=== PATIENT | male | born 1990 | race Caucasian/White ===

== ENCOUNTER 2017-02-26 10:41 | Emergency (ER) | payer OTHER, SELFPAY ==
[2017-02-26] MEDS ORDERED: Lactated Ringers 1,000 ML IV ONE (11:28)
[2017-02-26] MEDS ORDERED: Sodium Chloride 0.9% 10 ML Syringe FLUSH PRN (11:28)
[2017-02-26] MEDS ORDERED: Ondansetron 4 MG/2 ML SDV IVPUSH ONE (11:28)
[2017-02-26] MEDS ORDERED: LORazepam 2 MG/ML MDV IVPUSH ONE ×2 (11:54→13:02)
--- NOTE | 2017-02-26 12:01 | EDM.PDOCBH ---
ED HPI GENERAL MEDICAL PROBLEM - General Chief Complaint: Drug or Alcohol Abuse Stated Complaint: Alcohol withdrawal Time Seen by Provider: 02/26/17 11:20 Source of Information: Reports: Patient, RN Notes Reviewed History Limitations: Reports: No Limitations - History of Present Illness INITIAL COMMENTS - FREE TEXT/NARRATIVE: 26 year old male presents to the ED accompanied by his Dad due to concerns of alcohol withdrawal. He has a history of chronic alcohol abuse. He was last seen in the ED in June of 2016 at which time he was admits to [facility] and subsequently went to inpatient treatment at the [facility]. The patient says he has been sober since June. He says he completed treatment and was discharged. He started drinking again 3 days ago. He says he went through a 24 pack in 3 days. He also took "some shots." He denies drug use. He presents today concerned about alcohol withdrawal. He has a history of hallucinations in the past. He says he has difficulty sleeping and eating when he detoxes and feels this contributes to his hallucinations.He was unable to sleep last night. He also has no appetite today. He says that he wants to get a handle on his drinking before it gets worse. His last drink was around 5pm last evening. When asked how he is currently feeling as far as the withdrawal he states he feels "uneasy" and anxious. He denies tremors and hallucinations. He has had some dry heaving today. No fever. Denies pain. The patient feels that he can get a handle on his drinking with some help with the withdrawals. He has two jobs and is motivated to keep his jobs. He says he cannot afford to go back to the [facility] and feels outpatient therapy will be adequate. He has a assistant case manager at [facility] but cannot remember their name. He denies suicidal ideation. - Related Data Allergies Allergy/AdvReac Type Severity Reaction Status Date / Time No Known Allergies Allergy Verified 02/26/17 10:49 Home Meds: Home Meds LORazepam 1 - 2 mg PO Q6H PRN #16 tablet 02/26/17 [Rx] Past Medical History - Past Health History Medical/Surgical History: Denies Medical/Surgical History Psychiatric History: Reports: Anxiety, Hallucinations Social & Family History - Family History Family Medical History: Noncontributory - Tobacco Use Smoking Status *Q: Current Every Day Smoker Years of Tobacco use: 5 Packs/Tins Daily: 1 Second Hand Smoke Exposure: No - Caffeine Use Caffeine Use: Reports: None - Alcohol Use Days Per Week of Alcohol Use: 7 Number of Drinks Per Day: 8 Total Drinks Per Week: 56 - Recreational Drug Use Recreational Drug Use: No Drug Use in Last 12 Months: Yes Recreational Drug Type: Reports: Marijuana/Hashish Recreational Drug Use Frequency: Weekly Recreational Drug Last Use: 10/03/15 - Living Situation & Occupation Living situation: Reports: Single Occupation: Other ED ROS GENERAL - Review of Systems Review Of Systems: See Below Constitutional: Reports: Diaphoresis, Decreased Appetite. Denies: Fever Respiratory: Reports: No Symptoms. Denies: Cough Cardiovascular: Reports: No Symptoms. Denies: Chest Pain GI/Abdominal: Reports: Nausea, Vomiting. Denies: Abdominal Pain Skin: Reports: Other (redness to face ) Neurological: Denies: Confusion, Dizziness, Headache, Numbness, Tingling, Difficulty Walking, Weakness, Gait Disturbance Psychiatric: Reports: Anxiety. Denies: Confusion, Depression, Hallucinations, Mood Lability, Suicidal Ideation ED EXAM, BEHAVIORAL HEALTH - Physical Exam Exam: See Below Exam Limited By: No Limitations General Appearance: Alert, WD/WN, No Apparent Distress, Anxious Respiratory/Chest: No Respiratory Distress, Lungs Clear, Normal Breath Sounds, No Accessory Muscle Use, Chest Non-Tender Cardiovascular: No Edema, Tachycardia (mild) GI/Abdominal: Normal Bowel Sounds, Soft, Non-Tender, No Distention Neurological: Alert, Normal Gait, No Motor/Sensory Deficits, Oriented x 3. No: Ataxia, Tremor Psychiatric: Alert, Oriented, Depressed Mood, Flat Affect, Other (calm, cooperative, appears anxious ). No: Suicidal Plan, Suicidal Thoughts, Auditory Hallucinations, Visual Hallucinations, Threatening Behavior Skin Exam: Warm, Dry, Intact COURSE, BEHAVIORAL HEALTH COMP - Course Vital Signs: Last Vital Signs Temp 97.2 F 02/26/17 10:49 Pulse 109 H 02/26/17 10:49 Resp 23 H 02/26/17 10:49 BP 167/129 H 02/26/17 10:49 Pulse Ox 97 02/26/17 10:49 Orders, Labs, Meds: Active Orders 24 hr Category Date Time Status Peripheral IV Care [RC] . DIRECTED Care 02/26/17 11:29 Active Sodium Chloride 0.9% [Saline Flush] Med 02/26/17 11:28 Active 10 ml FLUSH ASDIRECTED PRN Peripheral IV Insertion Adult [OM.PC] Stat Oth 02/26/17 11:28 Ordered Medication Orders Sodium Chloride (Saline Flush) 10 ml FLUSH ASDIRECTED PRN PRN Reason: Keep Vein Open Last Admin: 02/26/17 11:42 Dose: 10 ml Laboratory Tests 02/26/17 02/26/17 02/26/17 Range/Units 10:55 10:55 12:05 WBC 10.89 H (4.23-9.07) K/mm3 RBC 5.18 (4.63-6.08) M/mm3 Hgb 16.5 (13.7-17.5) gm/L Hct 46.2 (40.1-51.0) % MCV 89.2 (79.0-92.2) fl MCH 31.9 (25.7-32.2) pg MCHC 35.7 H (32.2-35.5) g/dl RDW Std Deviation 41.9 (35.1-43.9) fL Plt Count 382 H (163-337) K/mm3 MPV 9.4 (9.4-12.3) fl Neut % (Auto) 79.0 H (34.0-67.9) % Lymph % (Auto) 9.6 L (21.8-53.1) % [place] % (Auto) 10.7 (5.3-12.2) % Eos % (Auto) 0.1 L (0.8-7.0) Baso % (Auto) 0.5 (0.1-1.2) % Neut # (Auto) 8.61 H (1.78-5.38) K/mm3 Lymph # (Auto) 1.05 L (1.32-3.57) K/mm3 [place] # (Auto) 1.16 H (0.30-0.82) K/mm3 Eos # (Auto) 0.01 L (0.04-0.54) K/mm3 Baso # (Auto) 0.05 (0.01-0.08) K/mm3 Manual Slide Review Normal smear Sodium 137 (136-145) mEq/L Potassium 4.1 (3.5-5.1) mEq/L Chloride 100 (98-107) mEq/L Carbon Dioxide 24 (21-32) mEq/L Anion Gap 17.1 H (5-15) BUN 12 (7-18) mg/dL Creatinine 0.9 (0.7-1.3) mg/dL Est Cr Clr Drug Dosing 112.24 mL/min Estimated GFR (MDRD) > 60 (>60) mL/min BUN/Creatinine Ratio 13.3 L (14-18) Glucose 123 H (74-106) mg/dL Calcium 9.7 (8.5-10.1) mg/dL Total Bilirubin 0.8 (0.2-1.0) mg/dL AST 105 H (15-37) U/L ALT 73 H (16-63) U/L Alkaline Phosphatase 62 (46-116) U/L Total Protein 7.8 (6.4-8.2) g/dl Albumin 3.9 (3.4-5.0) g/dl Globulin 3.9 gm/dL Albumin/Globulin Ratio 1.0 (1-2) Urine Opiates Screen Negative (NEGATIVE) Ur Buprenorphine Scrn Negative (NEGATIVE) Ur Oxycodone Screen Negative (NEGATIVE) Urine Methadone Screen Negative (NEGATIVE) Ur Propoxyphene Screen Negative (NEGATIVE) Ur Barbiturates Screen Negative (NEGATIVE) Ur Tricyclics Screen Negative (NEGATIVE) Ur Phencyclidine Scrn Negative (NEGATIVE) Ur Amphetamine Screen Negative (NEGATIVE) U Methamphetamines Scrn Negative (NEGATIVE) U Benzodiazepines Scrn Negative (NEGATIVE) U Cocaine Metab Screen Negative (NEGATIVE) U Marijuana (THC) Screen Negative (NEGATIVE) Ethyl Alcohol 0.00 (0.00) gm% Medications Generic Name Dose Route Start Last Admin Trade Name Freq PRN Reason Stop Dose Admin Sodium Chloride 10 ml 02/26/17 11:28 02/26/17 11:42 Saline Flush FLUSH 10 ml ASDIRECTED PRN Administration Keep Vein Open Discontinued Medications Generic Name Dose Route Start Last Admin Trade Name Freq PRN Reason Stop Dose Admin Lactated Ringer's 1,000 mls @ 999 mls/hr 02/26/17 11:28 02/26/17 11:38 Ringers, Lactated IV 02/26/17 12:28 999 mls/hr .BOLUS ONE Administration Lorazepam 1 mg 02/26/17 11:54 02/26/17 12:18 Ativan IVPUSH 02/26/17 11:55 1 mg ONETIME ONE Administration Lorazepam 0.5 mg 02/26/17 13:02 02/26/17 13:19 Ativan IVPUSH 02/26/17 13:03 0.5 mg ONETIME ONE Administration Ondansetron HCl 4 mg 02/26/17 11:28 02/26/17 11:38 Zofran IVPUSH 02/26/17 11:29 4 mg ONETIME ONE Administration Re-Assessment/Re-Exam: CBC reveals WBC of 10.89, upper limits of normal. No anemia. CMP reveals Na 137 , K 4.1, Anion gap 17, glucose 123, AST 105, and ALT 73. ETOH is 0 UDS is negative. Patient was treated with 1 liter of NS, Zofran and Ativan. He was feeling mildly better after 1mg of Ativan. He was given an additional 0.5mg. He feels he can remain sober and is willing to follow-up at [facility]. He will be given Ativan 1mg PO Q6H to help with withdrawal symptoms. He understands that he cannot drink while taking Ativan. He also understands that he cannot drive while taking Ativan. He was instructed to return with new or worsening symptoms. Departure - Departure Time of Disposition: 13:31 Disposition: Home, Self-Care 01 Condition: Good Clinical Impression: Alcohol withdrawal syndrome - Discharge Information Prescriptions: LORazepam 1 - 2 mg PO Q6H PRN #16 tablet PRN Reason: Withdrawal Symptoms Referrals: PCP,None [Primary Care Provider] - Additional Instructions: Rest and drink plenty of fluids Ativan 1-2 tabs every 6 hours as needed. Try to take only one tab during the day and two at bedtime to help with sleep. You were given enough for 4 days at which time your withdrawals should be done and you will no longer need the Ativan No driving for at least 8 hours after taking Ativan. Follow-up in the clinic with one of our family practice providers on Monday or Monday. Call [phone] to schedule Return to ER with new or worsening symptoms Follow-up with [facility] tomorrow morning. They have walk-in clinic at 8am or call your assistant case manager from [facility]. - My Orders Last 24 Hours: My Active Orders 02/26/17 11:28 Sodium Chloride 0.9% [Saline Flush] 10 ml FLUSH ASDIRECTED PRN Peripheral IV Insertion Adult [OM.PC] Stat 02/26/17 11:29 Peripheral IV Care [RC] . DIRECTED - Assessment/Plan Last 24 Hours: My Active Orders 02/26/17 11:28 Sodium Chloride 0.9% [Saline Flush] 10 ml FLUSH ASDIRECTED PRN Peripheral IV Insertion Adult [OM.PC] Stat 02/26/17 11:29 Peripheral IV Care [RC] . DIRECTED
[2017-02-26 14:56] VITALS: BP 162/108
== END 2017-02-26 13:55 | disposition home or self-care (01) ==
LOC: JD.ED 10:41
DX: F10.239 Alcohol dependence with withdrawal, unspecified (principal); F17.210 Nicotine dependence, cigarettes, uncomplicated
CPT/HCPCS: 36415; 80053; 80306; 85025; 96361; 96374; 96375; 96376; 99285; G0480; J2060; J2405; J7050; J7120; 99284

== ENCOUNTER 2020-08-18 07:52 | Emergency (ER) | payer SELFPAY ==
[2020-08-18] MEDS ORDERED: Dextrose 5%-0.9% NaCl 1,000 ML IV SCH (08:15)
[2020-08-18] MEDS ORDERED: Metoclopramide 10 MG/2 ML SDV IVPUSH ONE (08:16)
--- NOTE | 2020-08-18 08:18 | EDM.PDOC ---
ED HPI GENERAL MEDICAL PROBLEM - General Chief Complaint: Gastrointestinal Problem Stated Complaint: VOMITING Time Seen by Provider: 08/18/20 08:12 Source of Information: Reports: Patient History Limitations: Reports: No Limitations - History of Present Illness INITIAL COMMENTS - FREE TEXT/NARRATIVE: 30-year-old male presents to the ED stating that he has been ill for the last 3 days with nausea and vomiting. Did have some diarrhea initially mostly yellow and loose. Small volume stool loss. Emesis has been almost all bilious. No hematemesis. Patient is very poor and vague historian. He does not offer much in the way of answering questions. He agrees to some fever and chills. Associated mild headache. No cough. Does not believe he got into any bad food the day prior to the onset of illness. He works detailing cars for living. Is a non-smoker. Denies any alcohol use or street drug use. No previous abdominal surgery. Onset: Sudden Onset Date: 08/15/20 Duration: Day(s):, Constant Location: Reports: Abdomen (10 used to have nausea and vomiting of bilious emesis. Diarrhea is better the last day or 2.) Quality: Reports: Ache (Headache), Other ( generalized myalgia weakness lightheaded and dizzy upon standing) Severity: Moderate Improves with: Reports: None Worsens with: Reports: Other (Trying to eat or drink.) Context: Denies: Activity, Exercise, Lifting, Sick Contact, Trauma, Other Associated Symptoms: Reports: Fever/Chills, Headaches (Low-grade fever.), Loss of Appetite, Malaise, Nausea/Vomiting (Persistent), Weakness ( bilious emesis.). Denies: No Other Symptoms, Confusion, Chest Pain, Cough, cough w sputum, Diaphoresis, Rash, Seizure, Shortness of Breath, Syncope Treatments RUG INSPECTOR HELPER: Reports: Other (see below) (None.) Headache Pain Score (Numeric/FACES): 5 - Related Data Allergies Allergy/AdvReac Type Severity Reaction Status Date / Time No Known Allergies Allergy Verified 08/18/20 08:02 Home Meds: Home Meds Ondansetron [Zofran] 4 mg BUCCAL Q6H PRN #8 tab 08/18/20 [Rx] Past Medical History - Past Health History Medical/Surgical History: Denies Medical/Surgical History Psychiatric History: Reports: Anxiety, Hallucinations Social & Family History - Family History Family Medical History: No Pertinent Family History - Tobacco Use Tobacco Use Status *Q: Never Tobacco User Second Hand Smoke Exposure: No - Caffeine Use Caffeine Use: Reports: Energy Drinks - Recreational Drug Use Recreational Drug Use: No - Living Situation & Occupation Living situation: Reports: Single Occupation: Other ED ROS GENERAL - Review of Systems Review Of Systems: See Below Constitutional: Reports: Fever, Malaise, Weakness, Fatigue, Decreased Appetite, Weight Loss HEENT: Reports: No Symptoms Respiratory: Reports: Shortness of Breath. Denies: Wheezing, Pleuritic Chest Pain Cardiovascular: Reports: No Symptoms Endocrine: Reports: Fatigue GI/Abdominal: Reports: Diarrhea, Nausea (Diarrhea with initial onset of illness now improved.), Vomiting ( Nausea persists vomiting persists bilious emesis this morning.) : Reports: Other (Urine is dark in color but not burning.) Musculoskeletal: Reports: No Symptoms Skin: Reports: No Symptoms Neurological: Reports: Dizziness, Headache Psychiatric: Reports: No Symptoms Hematologic/Lymphatic: Reports: No Symptoms Immunologic: Reports: No Symptoms ED EXAM, GI/ABD - Physical Exam Exam: See Below Exam Limited By: No Limitations General Appearance: Alert, WD/WN, No Apparent Distress, Other (Hard to get any answers out of the patient. He is quite vague and somewhat withdrawn. Temperature is 36.1 heart rate 121 and sinus at the bedside. Respiratory 16 with a BP 165/87 and O2 sats of 98% on room air.) Eyes: Bilateral: Normal Appearance (No scleral icterus or blepharal pallor.) Throat/Mouth: Normal Inspection, Normal Lips, Normal Oropharynx, Other Neck: Normal Inspection, Supple, Non-Tender, Full Range of Motion. No: Lymphadenopathy (L), Lymphadenopathy (R) Respiratory/Chest: No Respiratory Distress, Lungs Clear, Normal Breath Sounds, No Accessory Muscle Use Cardiovascular: Regular Rate, Rhythm, No Edema, No Gallop (Tachycardia at rest.), No Murmur, No Rub, Tachycardia GI/Abdominal Exam: Normal Bowel Sounds, Soft, No Organomegaly, No Mass, Pelvis Stable, Tender (Minimally tender in the epigastrium.). No: Guarding, Rigid, Rebound (Male) Exam: No Hernia Back Exam: Normal Inspection, Full Range of Motion. No: CVA Tenderness (L), CVA Tenderness (R) Extremities: Normal Inspection, Normal Range of Motion, Non-Tender, No Pedal Edema Neurological: Alert, Oriented, CN II-XII Intact, Normal Cognition, Normal Gait, Normal Reflexes Psychiatric: Normal Affect, Normal Mood Skin Exam: Warm, Dry, Intact, Normal Color, No Rash Course - Vital Signs Last Recorded V/S: Last Vital Signs Temp 36.1 C 08/18/20 07:59 Pulse 121 H 08/18/20 07:59 Resp 16 08/18/20 07:59 BP 165/87 H 08/18/20 07:59 Pulse Ox 98 08/18/20 07:59 - Orders/Labs/Meds Orders: Active Orders 24 hr Category Date Time Status LACTATE SEPSIS W/ REFLEX [CHEM] Routine Lab 08/18/20 11:25 Received Dextrose 5%-0.9% NaCl [Dextrose 5%-Normal Saline] 1,000 Med 08/18/20 08:15 Active ml IV ASDIRECTED Ketorolac [Toradol] Med 08/18/20 08:30 Active 30 mg IVPUSH ONETIME Lactated Ringers [Ringers, Lactated] 1,000 ml Med 08/18/20 09:45 Active IV ASDIRECTED Ondansetron [Zofran] Med 08/18/20 11:52 Once 4 mg IVPUSH ONETIME ONE Medication Orders Dextrose/Sodium Chloride (Dextrose 5%-Normal Saline) 1,000 mls @ 999 mls/hr IV ASDIRECTED ONUR Last Admin: 08/18/20 08:27 Dose: 999 mls/hr Documented by: ABHINAV Lactated Ringer's (Ringers, Lactated) 1,000 mls @ 999 mls/hr IV ASDIRECTED ONUR Last Admin: 08/18/20 10:00 Dose: 999 mls/hr Documented by: ABHINAV Ketorolac Tromethamine (Ketorolac 30 Mg/Ml Sdv) 30 mg IVPUSH ONETIME ONUR Last Admin: 08/18/20 08:28 Dose: 30 mg Documented by: ABHINAV Labs: Laboratory Tests 08/18/20 08/18/20 08/18/20 Range/Units 08:25 08:25 08:25 WBC (4.23-9.07) K/mm3 RBC (4.63-6.08) M/mm3 Hgb (13.7-17.5) gm/dl Hct (40.1-51.0) % MCV (79.0-92.2) fl MCH (25.7-32.2) pg MCHC (32.2-35.5) g/dl RDW Std Deviation (35.1-43.9) fL Plt Count (163-337) K/mm3 MPV (9.4-12.3) fl Neut % (Auto) (34.0-67.9) % Lymph % (Auto) (21.8-53.1) % [place] % (Auto) (5.3-12.2) % Eos % (Auto) (0.8-7.0) Baso % (Auto) (0.1-1.2) % Neut # (Auto) (1.78-5.38) K/mm3 Lymph # (Auto) (1.32-3.57) K/mm3 [place] # (Auto) (0.30-0.82) K/mm3 Eos # (Auto) (0.04-0.54) K/mm3 Baso # (Auto) (0.01-0.08) K/mm3 Manual Slide Review Sodium 134 L (136-145) mEq/L Potassium 3.7 (3.5-5.1) mEq/L Chloride 93 L (98-107) mEq/L Carbon Dioxide 29 (21-32) mEq/L Anion Gap 15.7 H (5-15) BUN 12 (7-18) mg/dL Creatinine 1.1 (0.7-1.3) mg/dL Est Cr Clr Drug Dosing 101.39 mL/min Estimated GFR (MDRD) > 60 (>60) mL/min BUN/Creatinine Ratio 10.9 L (14-18) Glucose 137 H (74-106) mg/dL Lactic Acid 4.0 H* (0.4-2.0) mmol/L Calcium 8.6 (8.5-10.1) mg/dL Magnesium 1.9 (1.8-2.4) mg/dl Total Bilirubin 0.5 (0.2-1.0) mg/dL AST 43 H (15-37) U/L ALT 48 (16-63) U/L Alkaline Phosphatase 62 (46-116) U/L C-Reactive Protein (<1.0) mg/dL Total Protein 7.6 (6.4-8.2) g/dl Albumin 4.0 (3.4-5.0) g/dl Globulin 3.6 gm/dL Albumin/Globulin Ratio 1.1 (1-2) Lipase 70 L (73-393) U/L Ketones <0.01 (0.0-0.3) mM 08/18/20 08/18/20 Range/Units 08:25 08:25 WBC 10.07 H (4.23-9.07) K/mm3 RBC 5.09 (4.63-6.08) M/mm3 Hgb 15.8 (13.7-17.5) gm/dl Hct 46.0 (40.1-51.0) % MCV 90.4 (79.0-92.2) fl MCH 31.0 (25.7-32.2) pg MCHC 34.3 (32.2-35.5) g/dl RDW Std Deviation 42.5 (35.1-43.9) fL Plt Count 343 H (163-337) K/mm3 MPV 9.0 L (9.4-12.3) fl Neut % (Auto) 70.0 H (34.0-67.9) % Lymph % (Auto) 21.9 (21.8-53.1) % [place] % (Auto) 7.3 (5.3-12.2) % Eos % (Auto) 0.3 L (0.8-7.0) Baso % (Auto) 0.3 (0.1-1.2) % Neut # (Auto) 7.04 H (1.78-5.38) K/mm3 Lymph # (Auto) 2.21 (1.32-3.57) K/mm3 [place] # (Auto) 0.74 (0.30-0.82) K/mm3 Eos # (Auto) 0.03 L (0.04-0.54) K/mm3 Baso # (Auto) 0.03 (0.01-0.08) K/mm3 Manual Slide Review Abnormal smear Sodium (136-145) mEq/L Potassium (3.5-5.1) mEq/L Chloride (98-107) mEq/L Carbon Dioxide (21-32) mEq/L Anion Gap (5-15) BUN (7-18) mg/dL Creatinine (0.7-1.3) mg/dL Est Cr Clr Drug Dosing mL/min Estimated GFR (MDRD) (>60) mL/min BUN/Creatinine Ratio (14-18) Glucose (74-106) mg/dL Lactic Acid (0.4-2.0) mmol/L Calcium (8.5-10.1) mg/dL Magnesium (1.8-2.4) mg/dl Total Bilirubin (0.2-1.0) mg/dL AST (15-37) U/L ALT (16-63) U/L Alkaline Phosphatase (46-116) U/L C-Reactive Protein <0.2 (<1.0) mg/dL Total Protein (6.4-8.2) g/dl Albumin (3.4-5.0) g/dl Globulin gm/dL Albumin/Globulin Ratio (1-2) Lipase (73-393) U/L Ketones (0.0-0.3) mM Meds: Medications Generic Name Dose Route Start Last Admin Trade Name Freq PRN Reason Stop Dose Admin Dextrose/Sodium Chloride 1,000 mls @ 999 mls/hr 08/18/20 08:15 08/18/20 08:27 Dextrose 5%-Normal Saline IV 999 mls/hr ASDIRECTED ONUR Administration Lactated Ringer's 1,000 mls @ 999 mls/hr 08/18/20 09:45 08/18/20 10:00 Ringers, Lactated IV 999 mls/hr ASDIRECTED ONUR Administration Ketorolac Tromethamine 30 mg 08/18/20 08:30 08/18/20 08:28 Ketorolac 30 Mg/Ml Sdv IVPUSH 30 mg ONETIME ONUR Administration Discontinued Medications Generic Name Dose Route Start Last Admin Trade Name Freq PRN Reason Stop Dose Admin Metoclopramide HCl 7.5 mg 08/18/20 08:16 08/18/20 08:28 Metoclopramide 10 Mg/2 Ml Sdv IVPUSH 08/18/20 08:17 7.5 mg ONETIME ONE Administration Ondansetron HCl 4 mg 08/18/20 09:45 08/18/20 10:00 Ondansetron 4 Mg/2 Ml Sdv IVPUSH 08/18/20 09:46 4 mg ONETIME ONE Administration - Radiology Interpretation Free Text/Narrative:: 30-year-old male presents to the ED with a history of gastroenteritis with particularly persistent nausea and vomiting over the last 3 days. Minimal diarrhea to start with but better now. Has a headache generalized myalgia and weakness. No cough. No fever on exam. He has not taken any medication is nothing will stay down. He does not believe he got into any bad food. Plan IV D5 Ringer's lactate at open. Reglan 7.5 mg IV for nausea relief Toradol 30 mg IV for headache relief. Routine labs to be done including serum ketones and lactic acid. - Re-Assessments/Exams Free Text/Narrative Re-Assessment/Exam: 08/18/20 09:09 Sodium is 134 with a potassium of 3.7. Chloride 93 with a bicarb of 29. Anion gap is 15.7. BUN is 12 with a creatinine of 1.1 and a GFR greater than 60. Glucose is 137. Calcium is 8.6 magnesium is 1.9. Bilirubin is 0.5 AST slightly elevated at 43. ALT normal at 48 alk phosphatase of 62. Total protein 7.6 with an albumin fraction of 4.0 lipase is 70 08/18/20 09:15 Lactic acid is returned at 4.0. This is not necessarily reflected in his anion gap. It would be repeated in 2 to 3 hours.White count is 10.07 with a 70% neutrophils on the differential. Hematocrit of 46.0 platelet count 343,000 slightly elevated. 08/18/20 09:46 Due to his elevated lactic acid of 4.0 he will require a second liter of IV fluids. Plan will be to infuse Ringer's lactate 1 L at open. Still has mild nausea. Will give Zofran 4 mg IV. Serum ketones came back at less than 0.01. 08/18/20 11:52 she has pretty well completed his second liter of IV fluids which should correct his metabolic acidosis. He remains mildly nauseated. Will repeat Zofran 4 mg IV before discharge home. He will be discharged home on Zofran 4 mg sublingually every 4 to 6 hours as necessary for nausea relief. He is to try maintain fluid intake by way of Gatorade Powerade. Clear fluid diet. Departure - Departure Time of Disposition: 11:53 Disposition: Home, Self-Care 01 Condition: Fair Clinical Impression: Acute gastroenteritis - Discharge Information *PRESCRIPTION DRUG MONITORING PROGRAM REVIEWED*: Not Applicable *COPY OF PRESCRIPTION DRUG MONITORING REPORT IN PATIENT JACQUELINE: Not Applicable Prescriptions: Ondansetron [Zofran] 4 mg BUCCAL Q6H PRN #8 tab PRN Reason: nausea or vomiting Instructions: Viral Gastroenteritis, Adult, [id number] Referrals: PCP,None [Primary Care Provider] - Forms: ED Department Discharge Additional Instructions: Evaluation in the emergency room today in regards to 3-day history of nausea and vomiting with inability to keep down much in the way of fluids or solids. Mild diarrhea at initial onset of illness. No associated fever or chills. Lab test essentially were all within normal limits other than an elevated lactic acid ind icating that you were dehydrated. You thus were treated with 2 L of IV fluids to rehydrate you. You were treated with initial dose of Reglan 7.5 mg and 2 doses of Zofran 4 mg IV each for nausea relief. Headache was treated with Toradol 30 mg IV which is similar to Motrin. May use Tylenol 650 mg every 4 hours for headache relief or Motrin 600 mg every 6 hours for headache relief. May use Zofran under the tongue every 4-6 hours necessary for nausea relief. Next dose would be due around 4 PM today. Suggest clear fluids such as Gatorade/Powerade 4 to 5 ounces per hour to maintain hydration. If hungry try soda crackers first if they stay down may advance to jam on white bread. If this stays down then may advance to soup such as turkey rice/chicken noodle tonight for supper. Avoid all dairy products and no apple juice or grape juice until no further diarrhea has occurred. Return to the emergency room or medical care if you continue to vomit greater than the next 24 hours. Sepsis Event Note (ED) - Evaluation Sepsis Screening Result: No Definite Risk - Focused Exam Vital Signs: Vital Signs Temp Pulse Resp BP Pulse Ox 08/18/20 07:59 36.1 C 121 H 16 165/87 H 98 - My Orders Last 24 Hours: My Active Orders 08/18/20 08:15 Dextrose 5%-0.9% NaCl [Dextrose 5%-Normal Saline] 1,000 ml IV ASDIRECTED 08/18/20 08:30 Ketorolac [Toradol] 30 mg IVPUSH ONETIME 08/18/20 09:45 Lactated Ringers [Ringers, Lactated] 1,000 ml IV ASDIRECTED 08/18/20 11:25 LACTATE SEPSIS W/ REFLEX [CHEM] Routine 08/18/20 11:52 Ondansetron [Zofran] 4 mg IVPUSH ONETIME ONE - Assessment/Plan Last 24 Hours: My Active Orders 08/18/20 08:15 Dextrose 5%-0.9% NaCl [Dextrose 5%-Normal Saline] 1,000 ml IV ASDIRECTED 08/18/20 08:30 Ketorolac [Toradol] 30 mg IVPUSH ONETIME 08/18/20 09:45 Lactated Ringers [Ringers, Lactated] 1,000 ml IV ASDIRECTED 08/18/20 11:25 LACTATE SEPSIS W/ REFLEX [CHEM] Routine 08/18/20 11:52 Ondansetron [Zofran] 4 mg IVPUSH ONETIME ONE
[2020-08-18] MEDS ORDERED: Ketorolac 30 MG/ML SDV IVPUSH SCH (08:30)
[2020-08-18] MEDS ORDERED: Ondansetron 4 MG/2 ML SDV IVPUSH ONE ×2 (09:45→11:52)
[2020-08-18] MEDS ORDERED: Lactated Ringers 1,000 ML IV SCH (09:45)
[2020-08-18 12:03] VITALS: BP 145/73; PULSE 108
== END 2020-08-18 12:10 | disposition home or self-care (01) ==
LOC: JD.ED 07:52
DX: K52.9 Noninfective gastroenteritis and colitis, unspecified (principal); R74.02 Elevation of levels of lactic acid dehydrogenase [LDH]
CPT/HCPCS: 36415; 80053; 82009; 83605; 83690; 83735; 85025; 86140; 96374; 96375; 96376; 99284; J1885; J2405; J2765; J7042; J7120; 99283

== ENCOUNTER 2021-08-27 17:23 | Emergency (ER) | payer SELFPAY ==
[2021-08-27 18:28] VITALS: BP 144/77; PULSE 88
[2021-08-27] MEDS ORDERED: Folic Acid 1 MG Tab PO ONE (18:44)
[2021-08-27] MEDS ORDERED: LORazepam 2 MG/ML SDV IVPUSH ONE (18:44)
[2021-08-27] MEDS ORDERED: Sodium Chloride 0.9% 10 ML Syringe FLUSH PRN (18:44)
[2021-08-27] MEDS ORDERED: Metoclopramide 10 MG/2 ML SDV IVPUSH ONE (18:44)
[2021-08-27] MEDS ORDERED: Thiamine 100 MG Tab PO ONE (18:44)
[2021-08-27] MEDS ORDERED: Sodium Chloride 0.9% 1,000 ML IV ONE ×2 (18:44→19:52)
== END 2021-08-27 22:58 | disposition home or self-care (01) ==
LOC: JD.ED 17:23
DX: F10.129 Alcohol abuse with intoxication, unspecified (principal); Y90.1 Blood alcohol level of 20-39 mg/100 ml
CPT/HCPCS: 36415; 80053; 80306; 80307; 83735; 85025; 85610; 96374; 96375; 99284; A9270; J2060; J2765; J3490; J7030

== ENCOUNTER 2021-08-31 17:15 | Emergency (ER) | payer SELFPAY ==
[2021-08-31 17:25] VITALS: BP 156/106; PULSE 109
[2021-08-31] MEDS ORDERED: Lactated Ringers 1,000 ML IV ONE (17:33)
[2021-08-31] MEDS ORDERED: Sodium Chloride 0.9% 10 ML Syringe FLUSH PRN (17:33)
[2021-08-31 18:30] LABS: ACETAMINOPHEN 0 ug/mL (10-30)
== END 2021-08-31 19:48 | disposition home or self-care (01) ==
LOC: JD.ED 17:15
DX: F10.129 Alcohol abuse with intoxication, unspecified (principal); Y90.6 Blood alcohol level of 120-199 mg/100 ml
CPT/HCPCS: 36415; 80053; 80143; 80179; 80306; 80307; 81003; 83735; 84443; 85025; 99284; J3490; J7120

== ENCOUNTER 2022-10-20 13:40 | Emergency (ER) | payer SELFPAY ==
[2022-10-20 13:54] VITALS: BP 130/77; PULSE 80
== END 2022-10-20 14:40 | disposition home or self-care (01) ==
LOC: JD.ED 13:40
DX: Z48.02 Encounter for removal of sutures (principal)
CPT/HCPCS: 99281

== ENCOUNTER 2022-11-01 20:19 | Emergency (ER) | payer SELFPAY ==
[2022-11-01 21:07] LABS: HEMATOCRIT 50.6 % (40.1-51.0); HEMOGLOBIN 17.5 gm/dl (13.7-17.5); MEAN CORPUSCULAR HEMOGLOBIN 31.6 pg (25.7-32.2); MEAN CORPUSCULAR HGB CONC 34.6 g/dl (32.2-35.5); MEAN CORPUSCULAR VOLUME 91.5 fl (79.0-92.2); MEAN PLATELET VOLUME 8.5 fl (9.4-12.3); PLATELET COUNT,PLT 358 K/mm3 (163-337); RED BLOOD CELL COUNT 5.53 M/mm3 (4.63-6.08); WHITE BLOOD CELL COUNT,WBC 5.23 K/mm3 (4.23-9.07)
[2022-11-01] MEDS ORDERED: Ondansetron 4 MG/2 ML SDV IVPUSH ONE (21:21)
[2022-11-01] MEDS ORDERED: Sodium Chloride 0.9% 1,000 ML IV STA (21:21)
[2022-11-01 21:37] LABS: ALBUMIN 3.9 g/dl (3.4-5.0); ANION GAP 14.6 (5-15); BILIRUBIN TOTAL 0.6 mg/dL (0.2-1.0); BUN/CREATININE RATIO 7.8 (14-18); CREATININE 0.9 mg/dL (0.7-1.3); EST CRCL DRUG DOSING (CG) 106.33 mL/min; ETHANOL BLOOD MEDICAL 0.45 gm% (0.00); POTASSIUM,K 3.6 mEq/L (3.5-5.1); TSH 2.227 uIU/mL (0.358-3.74)
[2022-11-01 21:46] LABS: BAND PERCENT MAN 0 % (0-10); BASOPHILS PERCENT MAN 2 (0.2-1.2); EOSINOPHILS PERCENT MAN 0 % (0.8-7.0); LYMPHOCYTES % ATYPICAL MANUAL 0 %; LYMPHOCYTES PERCENT MAN 30 % (20-40); MONOCYTES PERCENT MAN 9 % (2-10); PLATELET COUNT ESTIMATE ADEQUATE
[2022-11-02 00:44] VITALS: BP 135/106; PULSE 108
== END 2022-11-01 23:50 | disposition home or self-care (01) ==
LOC: JD.ED 20:19
DX: F10.929 Alcohol use, unspecified with intoxication, unspecified (principal); Y90.2 Blood alcohol level of 40-59 mg/100 ml
CPT/HCPCS: 36415; 80053; 80143; 80179; 80307; 84443; 85007; 85027; 93005; 96361; 96374; 99284; J2405; J7030; 93010

== ENCOUNTER 2022-11-02 18:05 | Emergency (ER) | payer SELFPAY ==
[2022-11-02] MEDS ORDERED: Sodium Chloride 0.9% 1,000 ML IV ONE ×3 (18:24→22:45)
[2022-11-02] MEDS ORDERED: Metoclopramide 10 MG/2 ML SDV IVPUSH ONE (18:35)
[2022-11-02] MEDS: Sodium Chloride 0.9% 10 ML Syringe FLUSH PRN ×2 (19:01→20:03)
[2022-11-02 19:11] LABS: BASOPHILS ABSOLUTE AUTO 0.04 K/mm3 (0.01-0.08); BASOPHILS PERCENT AUTO 0.6 % (0.1-1.2); EOSINOPHILS ABSOLUTE AUTO 0.02 K/mm3 (0.04-0.54); EOSINOPHILS PERCENT AUTO 0.3 (0.8-7.0); HEMATOCRIT 47.5 % (40.1-51.0); HEMOGLOBIN 16.2 gm/dl (13.7-17.5); IMMATURE GRAN ABSOLUTE AUTO 0.01 K/mm3 (0.00-0.10); IMMATURE GRAN PERCENT AUTO 0.2 % (<=1.0); LYMPHOCYTES ABSOLUTE AUTO 1.37 K/mm3 (1.32-3.57); MEAN CORPUSCULAR HEMOGLOBIN 31.7 pg (25.7-32.2); MEAN CORPUSCULAR HGB CONC 34.1 g/dl (32.2-35.5); MEAN PLATELET VOLUME 8.7 fl (9.4-12.3); MONOCYTES ABSOLUTE AUTO 0.64 K/mm3 (0.30-0.82); MONOCYTES PERCENT AUTO 10.3 % (5.3-12.2); NEUTROPHILS ABSOLUTE AUTO 4.14 K/mm3 (1.78-5.38); NEUTROPHILS PERCENT AUTO 66.6 % (34.0-67.9); PLATELET COUNT,PLT 305 K/mm3 (163-337); RED BLOOD CELL COUNT 5.11 M/mm3 (4.63-6.08); WHITE BLOOD CELL COUNT,WBC 6.22 K/mm3 (4.23-9.07)
[2022-11-02 19:20] LABS: BARBITURATE SCREEN,URINE NEGATIVE (CUTOFF=200); BENZODIAZEPINES SCREEN,URINE NEGATIVE (CUTOFF=150); BUPRENORPHINE SCREEN,URINE NEGATIVE (CUTOFF=10); METHADONE SCREEN, URINE NEGATIVE (CUT0FF=200); METHAMPHETAMINES SCREEN, URINE NEGATIVE (CUTOFF=500); OXYCODONE SCREEN,URINE NEGATIVE (CUT0FF=100); PROPOXYPHENE SCREEN,URINE NEGATIVE (CUTOFF=300); THC SCREEN,URINE 20 NG/ML PRESUMPTIVE POSITIVE (CUTOFF=50)
[2022-11-02 19:22] LABS: AMPHETAMINES SCREEN, URINE NEGATIVE (CUTOFF=500)
[2022-11-02 19:30] LABS: INR 1.03
[2022-11-02 19:33] LABS: ALBUMIN 3.8 g/dl (3.4-5.0); ANION GAP 11.6 (5-15); BILIRUBIN TOTAL 0.5 mg/dL (0.2-1.0); BUN/CREATININE RATIO 15.6 (14-18); CALCIUM 8.7 mg/dL (8.5-10.1); CREATININE 0.9 mg/dL (0.7-1.3); ETHANOL BLOOD MEDICAL 0.36 gm% (0.00); POTASSIUM,K 3.6 mEq/L (3.5-5.1); PROTEIN TOTAL,TP 7.7 g/dl (6.4-8.2)
[2022-11-02] MEDS ORDERED: LORazepam 2 MG/ML SDV IVPUSH ONE (19:50)
[2022-11-03] MEDS ORDERED: LORazepam 2 MG/ML SDV IVPUSH ONE (05:21)
[2022-11-03 10:13] VITALS: BP 149/95; PULSE 101
== END 2022-11-03 10:13 | disposition other institution (70) ==
LOC: JD.ED 18:05
DX: F10.10 Alcohol abuse, uncomplicated (principal); F17.210 Nicotine dependence, cigarettes, uncomplicated; Y90.0 Blood alcohol level of less than 20 mg/100 ml
CPT/HCPCS: 36415; 80053; 80306; 80307; 83735; 85025; 85610; 96361; 96374; 96375; 96376; 99285; J2060; J2765; J3490; J7030; 99284

== ENCOUNTER 2022-12-14 17:07 | Emergency (ER) | payer SELFPAY ==
[2022-12-14 17:48] VITALS: BP 151/94; PULSE 109
== END 2022-12-14 18:41 | disposition left against medical advice (07) ==
LOC: JD.ED 17:07
DX: Z53.21 Procedure and treatment not carried out due to patient leaving prior to being seen by health care provider (principal)

== ENCOUNTER 2022-12-15 08:31 | Emergency (ER) | payer SELFPAY ==
[2022-12-15 09:15] LABS: BASOPHILS ABSOLUTE AUTO 0.03 K/mm3 (0.01-0.08); BASOPHILS PERCENT AUTO 0.3 % (0.1-1.2); EOSINOPHILS ABSOLUTE AUTO 0.02 K/mm3 (0.04-0.54); EOSINOPHILS PERCENT AUTO 0.2 (0.8-7.0); HEMATOCRIT 47.2 % (40.1-51.0); HEMOGLOBIN 16.3 gm/dl (13.7-17.5); IMMATURE GRAN ABSOLUTE AUTO 0.03 K/mm3 (0.00-0.10); IMMATURE GRAN PERCENT AUTO 0.3 % (<=1.0); LYMPHOCYTES ABSOLUTE AUTO 1.55 K/mm3 (1.32-3.57); LYMPHOCYTES PERCENT AUTO 13.4 % (21.8-53.1); MEAN CORPUSCULAR HGB CONC 34.5 g/dl (32.2-35.5); MEAN CORPUSCULAR VOLUME 92.7 fl (79.0-92.2); MEAN PLATELET VOLUME 9.7 fl (9.4-12.3); MONOCYTES ABSOLUTE AUTO 1.44 K/mm3 (0.30-0.82); MONOCYTES PERCENT AUTO 12.4 % (5.3-12.2); NEUTROPHILS ABSOLUTE AUTO 8.53 K/mm3 (1.78-5.38); NEUTROPHILS PERCENT AUTO 73.4 % (34.0-67.9); PLATELET COUNT,PLT 168 K/mm3 (163-337); RED BLOOD CELL COUNT 5.09 M/mm3 (4.63-6.08)
[2022-12-15 09:31] LABS: BARBITURATE SCREEN,URINE NEGATIVE (CUTOFF=200); BENZODIAZEPINES SCREEN,URINE NEGATIVE (CUTOFF=150); BUPRENORPHINE SCREEN,URINE NEGATIVE (CUTOFF=10); METHADONE SCREEN, URINE NEGATIVE (CUT0FF=200); METHAMPHETAMINES SCREEN, URINE NEGATIVE (CUTOFF=500); OXYCODONE SCREEN,URINE NEGATIVE (CUT0FF=100); PROPOXYPHENE SCREEN,URINE NEGATIVE (CUTOFF=300); THC SCREEN,URINE 20 NG/ML PRESUMPTIVE POSITIVE (CUTOFF=50)
[2022-12-15 09:46] LABS: A/G RATIO 1.1 (1-2); ALBUMIN 4.4 g/dl (3.4-5.0); ANION GAP 16.2 (5-15); BILIRUBIN TOTAL 1.4 mg/dL (0.2-1.0); BUN/CREATININE RATIO 30.9 (14-18); CREATININE 1.1 mg/dL (0.7-1.3); EST CRCL DRUG DOSING (CG) 92.24 mL/min; POTASSIUM,K 4.2 mEq/L (3.5-5.1); PROTEIN TOTAL,TP 8.6 g/dl (6.4-8.2); TSH 2.937 uIU/mL (0.358-3.74)
[2022-12-15 09:56] LABS: AMPHETAMINES SCREEN, URINE NEGATIVE (CUTOFF=500)
[2022-12-15] MEDS ORDERED: QUEtiapine 25 MG Tab PO ONE (10:12)
[2022-12-15 12:48] VITALS: BP 119/79; PULSE 84
== END 2022-12-15 12:30 | disposition home or self-care (01) ==
LOC: JD.ED 08:31
DX: R44.3 Hallucinations, unspecified (principal); Z79.899 Other long term (current) drug therapy
CPT/HCPCS: 36415; 80053; 80143; 80179; 80306; 80307; 84443; 85025; 99285; A9270; 99283

== ENCOUNTER 2023-01-18 23:41 | Emergency (ER) | payer SELFPAY ==
[2023-01-19] MEDS ORDERED: Sodium Chloride 0.9% 500 ML IV ONE (00:02)
[2023-01-19] MEDS ORDERED: Ondansetron 4 MG/2 ML SDV IVPUSH ONE (00:03)
[2023-01-19 00:16] LABS: BASOPHILS ABSOLUTE AUTO 0.1 K/mm3 (0.0-0.2); BASOPHILS PERCENT AUTO 0.9 % (0.0-1.0); EOSINOPHILS PERCENT AUTO 0.1 % (0.0-6.0); HEMOGLOBIN 17.6 gm/dl (14.0-18.0); IMMATURE GRAN ABSOLUTE AUTO 0.02 K/mm3 (0.00-0.05); IMMATURE GRAN PERCENT AUTO 0.2 % (0.0-0.4); LYMPHOCYTES ABSOLUTE AUTO 2.9 K/mm3 (1.0-4.8); LYMPHOCYTES PERCENT AUTO 31.9 % (24.0-44.0); MEAN CORPUSCULAR HEMOGLOBIN 31.7 pg (28.0-32.0); MEAN CORPUSCULAR HGB CONC 35.2 g/dl (32.0-36.0); MEAN CORPUSCULAR VOLUME 89.9 fl (83.0-99.0); MEAN PLATELET VOLUME 8.8 fl (9.4-12.4); MONOCYTES ABSOLUTE AUTO 0.5 K/mm3 (0.0-0.8); MONOCYTES PERCENT AUTO 5.9 % (0.0-8.0); NEUTROPHILS ABSOLUTE AUTO 5.4 K/mm3 (1.8-7.7); PLATELET COUNT,PLT 247 K/mm3 (150-400); RED BLOOD CELL COUNT 5.56 M/mm3 (4.52-5.90); WHITE BLOOD CELL COUNT,WBC 8.93 K/mm3 (3.9-11.3)
[2023-01-19 00:41] LABS: A/G RATIO 1.1 (1-2); ALBUMIN 3.8 g/dl (3.4-5.0); ANION GAP 17.7 (5-15); BILIRUBIN TOTAL 0.6 mg/dL (0.2-1.0); BUN/CREATININE RATIO 17.8 (14-18); CALCIUM 8.5 mg/dL (8.5-10.1); CREATININE 0.9 mg/dL (0.7-1.3); EST CRCL DRUG DOSING (CG) 106.33 mL/min; ETHANOL BLOOD MEDICAL 0.41 gm% (0.00); POTASSIUM,K 3.7 mEq/L (3.5-5.1); PROTEIN TOTAL,TP 7.4 g/dl (6.4-8.2)
[2023-01-19 01:41] LABS: BARBITURATE SCREEN,URINE NEGATIVE (CUTOFF=200); BENZODIAZEPINES SCREEN,URINE NEGATIVE (CUTOFF=150); BUPRENORPHINE SCREEN,URINE NEGATIVE (CUTOFF=10); METHADONE SCREEN, URINE NEGATIVE (CUT0FF=200); METHAMPHETAMINES SCREEN, URINE NEGATIVE (CUTOFF=500); OXYCODONE SCREEN,URINE NEGATIVE (CUT0FF=100); PROPOXYPHENE SCREEN,URINE NEGATIVE (CUTOFF=300); THC SCREEN,URINE 20 NG/ML PRESUMPTIVE POSITIVE (CUTOFF=50)
[2023-01-19 01:43] LABS: AMPHETAMINES SCREEN, URINE NEGATIVE (CUTOFF=500)
[2023-01-19 02:08] VITALS: BP 147/99; PULSE 105
== END 2023-01-19 02:00 | disposition left against medical advice (07) ==
LOC: JD.ED 23:41
DX: F10.10 Alcohol abuse, uncomplicated (principal); F17.210 Nicotine dependence, cigarettes, uncomplicated; Y90.0 Blood alcohol level of less than 20 mg/100 ml; Z79.899 Other long term (current) drug therapy
CPT/HCPCS: 36415; 80053; 80306; 80307; 85025; 96361; 96374; 99284; J2405; J7030

== ENCOUNTER 2023-01-25 12:31 | Emergency (ER) | payer SELFPAY ==
[2023-01-25] MEDS ORDERED: Lactated Ringers 1,000 ML IV ONE ×2 (13:44→16:57)
[2023-01-25 13:56] LABS: APPEARANCE,URINE CLEAR (Clear); BILIRUBIN,URINE NEGATIVE (Negative); COLOR,URINE YELLOW (Yellow); GLUCOSE,URINE NEGATIVE (Negative); KETONES,URINE NEGATIVE (Negative); LEUKOCYTE ESTERASE,URINE NEGATIVE (Negative); NITRITE,URINE NEGATIVE (Negative); OCCULT BLOOD,URINE TRACE-INTACT (Negative); PH,URINE 6.5 (5.0-8.0); PROTEIN,URINE 2+ (Negative); UROBILINOGEN,URINE 0.2 (0.2-1.0)
[2023-01-25 14:02] LABS: BARBITURATE SCREEN,URINE NEGATIVE (CUTOFF=200); BENZODIAZEPINES SCREEN,URINE NEGATIVE (CUTOFF=150); BUPRENORPHINE SCREEN,URINE NEGATIVE (CUTOFF=10); METHADONE SCREEN, URINE NEGATIVE (CUT0FF=200); METHAMPHETAMINES SCREEN, URINE NEGATIVE (CUTOFF=500); OXYCODONE SCREEN,URINE NEGATIVE (CUT0FF=100); PROPOXYPHENE SCREEN,URINE NEGATIVE (CUTOFF=300); THC SCREEN,URINE 20 NG/ML PRESUMPTIVE POSITIVE (CUTOFF=50)
[2023-01-25 14:03] LABS: BACTERIA,URINE FEW /hpf (FEW); EPITHELIAL CELLS,URINE 0-5 /hpf (0-5); MUCUS,URINE MODERATE /hpf (FEW); RBC,URINE 0-5 /hpf (0-5); WBC,URINE 0-5 /hpf (0-5)
[2023-01-25 14:05] LABS: AMPHETAMINES SCREEN, URINE NEGATIVE (CUTOFF=500)
[2023-01-25 14:09] LABS: BASOPHILS ABSOLUTE AUTO 0.1 K/mm3 (0.0-0.2); BASOPHILS PERCENT AUTO 0.5 % (0.0-1.0); EOSINOPHILS PERCENT AUTO 0.1 % (0.0-6.0); HEMATOCRIT 52.6 % (42.0-52.0); HEMOGLOBIN 18.8 gm/dl (14.0-18.0); IMMATURE GRAN ABSOLUTE AUTO 0.03 K/mm3 (0.00-0.05); IMMATURE GRAN PERCENT AUTO 0.3 % (0.0-0.4); LYMPHOCYTES ABSOLUTE AUTO 2.3 K/mm3 (1.0-4.8); LYMPHOCYTES PERCENT AUTO 21.1 % (24.0-44.0); MEAN CORPUSCULAR HEMOGLOBIN 31.4 pg (28.0-32.0); MEAN CORPUSCULAR HGB CONC 35.7 g/dl (32.0-36.0); MEAN PLATELET VOLUME 8.8 fl (9.4-12.4); MONOCYTES ABSOLUTE AUTO 0.8 K/mm3 (0.0-0.8); NEUTROPHILS ABSOLUTE AUTO 7.9 K/mm3 (1.8-7.7); PLATELET COUNT,PLT 151 K/mm3 (150-400); RED BLOOD CELL COUNT 5.98 M/mm3 (4.52-5.90); WHITE BLOOD CELL COUNT,WBC 11.07 K/mm3 (3.9-11.3)
[2023-01-25 14:41] LABS: ALBUMIN 3.7 g/dl (3.4-5.0); ANION GAP 13.5 (5-15); BILIRUBIN TOTAL 0.8 mg/dL (0.2-1.0); BUN/CREATININE RATIO 21.1 (14-18); CALCIUM 8.4 mg/dL (8.5-10.1); CREATININE 0.9 mg/dL (0.7-1.3); EST CRCL DRUG DOSING (CG) 106.33 mL/min; ETHANOL BLOOD MEDICAL 0.47 gm% (0.00); POTASSIUM,K 3.5 mEq/L (3.5-5.1); PROTEIN TOTAL,TP 7.5 g/dl (6.4-8.2)
[2023-01-25] MEDS ORDERED: LORazepam 2 MG/ML SDV IVPUSH ONE (15:56)
[2023-01-25] MEDS ORDERED: Ondansetron 4 MG/2 ML SDV IVPUSH ONE (16:59)
[2023-01-26] MEDS ORDERED: LORazepam 2 MG/ML SDV IVPUSH ONE (00:26)
[2023-01-26] MEDS ORDERED: LORazepam 1 MG Tab PO ONE ×3 (07:55→14:00)
[2023-01-26 13:50] VITALS: BP 147/87; PULSE 101
[2023-01-26] MEDS ORDERED: Ondansetron 4 MG Tab.DIS PO ONE (15:05)
== END 2023-01-26 16:09 | disposition other institution (70) ==
LOC: JD.ED 12:31
DX: F10.239 Alcohol dependence with withdrawal, unspecified (principal); Y90.0 Blood alcohol level of less than 20 mg/100 ml
CPT/HCPCS: 36415; 80053; 80143; 80179; 80306; 80307; 81001; 83735; 84443; 85025; A9270; J2060; J2405; J7120; 96361; 96374; 96375; 96376; 99284; 99284-25

== ENCOUNTER 2023-02-22 04:01 | Emergency (ER) | payer SELFPAY ==
[2023-02-22] MEDS ORDERED: Sodium Chloride 0.9% 10 ML Syringe FLUSH PRN (04:10)
[2023-02-22] MEDS ORDERED: Sodium Chloride 0.9% 1,000 ML IV ONE ×2 (04:10→04:50)
[2023-02-22 04:25] LABS: BASOPHILS ABSOLUTE AUTO 0.1 K/mm3 (0.0-0.2); BASOPHILS PERCENT AUTO 0.5 % (0.0-1.0); HEMATOCRIT 52.9 % (42.0-52.0); HEMOGLOBIN 18.6 gm/dl (14.0-18.0); IMMATURE GRAN ABSOLUTE AUTO 0.01 K/mm3 (0.00-0.05); IMMATURE GRAN PERCENT AUTO 0.1 % (0.0-0.4); LYMPHOCYTES ABSOLUTE AUTO 3.2 K/mm3 (1.0-4.8); LYMPHOCYTES PERCENT AUTO 32.8 % (24.0-44.0); MEAN CORPUSCULAR HEMOGLOBIN 31.6 pg (28.0-32.0); MEAN CORPUSCULAR HGB CONC 35.2 g/dl (32.0-36.0); MEAN CORPUSCULAR VOLUME 89.8 fl (83.0-99.0); MEAN PLATELET VOLUME 8.8 fl (9.4-12.4); MONOCYTES ABSOLUTE AUTO 0.5 K/mm3 (0.0-0.8); MONOCYTES PERCENT AUTO 4.7 % (0.0-8.0); NEUTROPHILS PERCENT AUTO 61.9 % (41.0-71.0); PLATELET COUNT,PLT 208 K/mm3 (150-400); RED BLOOD CELL COUNT 5.89 M/mm3 (4.52-5.90); WHITE BLOOD CELL COUNT,WBC 9.66 K/mm3 (3.9-11.3)
[2023-02-22 04:56] LABS: ALBUMIN 3.9 g/dl (3.4-5.0); ANION GAP 18.5 (5-15); BILIRUBIN TOTAL 0.6 mg/dL (0.2-1.0); CALCIUM 8.5 mg/dL (8.5-10.1); EST CRCL DRUG DOSING (CG) 95.7 mL/min; ETHANOL BLOOD MEDICAL 0.43 gm% (0.00); POTASSIUM,K 3.5 mEq/L (3.5-5.1); PROTEIN TOTAL,TP 7.9 g/dl (6.4-8.2)
[2023-02-22 04:57] LABS: BARBITURATE SCREEN,URINE NEGATIVE (CUTOFF=200); BENZODIAZEPINES SCREEN,URINE NEGATIVE (CUTOFF=150); BUPRENORPHINE SCREEN,URINE NEGATIVE (CUTOFF=10); METHADONE SCREEN, URINE NEGATIVE (CUT0FF=200); METHAMPHETAMINES SCREEN, URINE NEGATIVE (CUTOFF=500); OXYCODONE SCREEN,URINE NEGATIVE (CUT0FF=100); THC SCREEN,URINE 20 NG/ML PRESUMPTIVE POSITIVE (CUTOFF=50)
[2023-02-22 05:00] LABS: AMPHETAMINES SCREEN, URINE NEGATIVE (CUTOFF=500)
[2023-02-22] MEDS ORDERED: hydrOXYzine HCl 25 MG Tab PO ONE (15:23)
[2023-02-22] MEDS ORDERED: hydrOXYzine HCl 50 MG Tab PO ONE (15:30)
[2023-02-22] MEDS ORDERED: LORazepam 1 MG Tab PO ONE ×2 (19:42→22:45)
[2023-02-22] MEDS ORDERED: Take Home: Ondansetron 4 MG Tab.DIS, 2 Tab Pack PO ONE (19:55)
[2023-02-22 22:54] VITALS: BP 139/89; PULSE 95
== END 2023-02-22 22:42 ==
LOC: JD.ED 04:01
DX: S01.81XA Laceration without foreign body of other part of head, initial encounter (principal); F10.239 Alcohol dependence with withdrawal, unspecified; F19.10 Other psychoactive substance abuse, uncomplicated; Z79.899 Other long term (current) drug therapy; W19.XXXA Unspecified fall, initial encounter
CPT/HCPCS: 12011; 36415; 70450; 70486; 72125; 80053; 80306; 80307; 85025; 96360; 96361; 99285; A9270; J3490; J7030; 99283

== ENCOUNTER 2023-02-23 10:14 | Emergency (ER) | payer SELFPAY ==
[2023-02-23 13:14] VITALS: BP 158/96; PULSE 112
== END 2023-02-23 13:10 | disposition other institution (70) ==
LOC: JD.ED 10:14
DX: R44.1 Visual hallucinations (principal); F10.20 Alcohol dependence, uncomplicated; F17.210 Nicotine dependence, cigarettes, uncomplicated
CPT/HCPCS: 99283; 99284

== ENCOUNTER 2023-02-24 02:36 | Inpatient (IN) | payer SELFPAY ==
[2023-02-24] MEDS ORDERED: LORazepam 2 MG/ML SDV IVPUSH ONE ×3 (03:20→12:32)
[2023-02-24] MEDS ORDERED: Haloperidol Lactate 5 MG/ML SDV IVPUSH ONE (03:20)
[2023-02-24] MEDS: Dextrose 5%-0.9% NaCl 1,000 ML IV SCH ×2 (03:36→22:12)
[2023-02-24] MEDS ORDERED: diphenhydrAMINE 50 MG/ML SDV IVPUSH ONE (03:38)
[2023-02-24 03:55] LABS: BASOPHILS PERCENT AUTO 0.4 % (0.0-1.0); EOSINOPHILS PERCENT AUTO 0.3 % (0.0-6.0); HEMATOCRIT 39.5 % (42.0-52.0); HEMOGLOBIN 14.2 gm/dl (14.0-18.0); IMMATURE GRAN ABSOLUTE AUTO 0.03 K/mm3 (0.00-0.05); IMMATURE GRAN PERCENT AUTO 0.4 % (0.0-0.4); LYMPHOCYTES ABSOLUTE AUTO 1.1 K/mm3 (1.0-4.8); LYMPHOCYTES PERCENT AUTO 15.3 % (24.0-44.0); MEAN CORPUSCULAR HEMOGLOBIN 32.1 pg (28.0-32.0); MEAN CORPUSCULAR HGB CONC 35.9 g/dl (32.0-36.0); MEAN CORPUSCULAR VOLUME 89.4 fl (83.0-99.0); MEAN PLATELET VOLUME 10.3 fl (9.4-12.4); MONOCYTES ABSOLUTE AUTO 0.8 K/mm3 (0.0-0.8); MONOCYTES PERCENT AUTO 11.7 % (0.0-8.0); NEUTROPHILS PERCENT AUTO 71.9 % (41.0-71.0); PLATELET COUNT,PLT 87 K/mm3 (150-400); RED BLOOD CELL COUNT 4.42 M/mm3 (4.52-5.90); WHITE BLOOD CELL COUNT,WBC 7.01 K/mm3 (3.9-11.3)
[2023-02-24 04:17] LABS: ALBUMIN 3.6 g/dl (3.4-5.0); ANION GAP 16.2 (5-15); BUN/CREATININE RATIO 10.8 (14-18); CALCIUM 9.4 mg/dL (8.5-10.1); CREATININE 1.3 mg/dL (0.7-1.3); EST CRCL DRUG DOSING (CG) 73.62 mL/min; MAGNESIUM 1.6 mg/dL (1.8-2.4); POTASSIUM,K 3.2 mEq/L (3.5-5.1); PROTEIN TOTAL,TP 7.3 g/dl (6.4-8.2)
[2023-02-24] MEDS ORDERED: Magnesium Sulfate/Water 2 GM in Premix Bag 1 BAG IV ONE (04:24)
[2023-02-24] MEDS ORDERED: QUEtiapine 25 MG Tab PO ONE (08:10)
[2023-02-24] MEDS ORDERED: Ondansetron 4 MG/2 ML SDV IV PRN (12:22)
[2023-02-24] MEDS ORDERED: Ondansetron 4 MG Tab.DIS PO PRN (12:22)
[2023-02-24] MEDS ORDERED: Acetaminophen 325 MG Tab PO PRN (12:22)
[2023-02-24] MEDS ORDERED: cloNIDine 0.1 MG Tab PO PRN (12:25)
[2023-02-24] MEDS ORDERED: Metoprolol Tartrate 25 MG Tab PO PRN (12:25)
[2023-02-24] MEDS ORDERED: LORazepam 1 MG Tab PO SCH (12:30)
[2023-02-24] MEDS ORDERED: Thiamine 100 MG in Sodium Chloride 0.9% 50 ML IV SCH (12:30)
[2023-02-24] MEDS: Heparin Sodium 5,000 Units/ML Vial SUBCUT SCH ×2 (12:50→20:26)
[2023-02-24] MEDS: PHENobarbital Sodium 65 MG/ML SDV IVPUSH PRN ×3 (15:28→19:05)
[2023-02-24] MEDS: Thiamine 200 MG/2 ML MDV IVPUSH SCH (16:31)
[2023-02-24] MEDS: LORazepam 2 MG/ML SDV IV SCH ×3 (16:31→18:34)
[2023-02-24] MEDS: Folic Acid 1 MG Tab PO SCH (16:31)
[2023-02-25] MEDS: Dextrose 5%-0.9% NaCl 1,000 ML IV SCH (02:04)
[2023-02-25] MEDS ORDERED: Lactated Ringers 1,000 ML IV ONE ×2 (03:12→04:37)
[2023-02-25] MEDS ORDERED: Lactated Ringers 1,000 ML ONE (03:16)
[2023-02-25] MEDS: Heparin Sodium 5,000 Units/ML Vial SUBCUT SCH ×2 (04:01→12:14)
[2023-02-25] MEDS: Lactated Ringers 1,000 ML IV SCH ×2 (04:07→12:15)
[2023-02-25 05:39] LABS: BASOPHILS PERCENT AUTO 0.6 % (0.0-1.0); EOSINOPHILS ABSOLUTE AUTO 0.2 K/mm3 (0.0-0.4); EOSINOPHILS PERCENT AUTO 3.2 % (0.0-6.0); IMMATURE GRAN ABSOLUTE AUTO 0.04 K/mm3 (0.00-0.05); IMMATURE GRAN PERCENT AUTO 0.6 % (0.0-0.4); LYMPHOCYTES ABSOLUTE AUTO 2.4 K/mm3 (1.0-4.8); LYMPHOCYTES PERCENT AUTO 33.3 % (24.0-44.0); MEAN CORPUSCULAR HEMOGLOBIN 32.6 pg (28.0-32.0); MEAN CORPUSCULAR HGB CONC 34.7 g/dl (32.0-36.0); MEAN CORPUSCULAR VOLUME 93.9 fl (83.0-99.0); MEAN PLATELET VOLUME 10.6 fl (9.4-12.4); MONOCYTES ABSOLUTE AUTO 0.9 K/mm3 (0.0-0.8); MONOCYTES PERCENT AUTO 12.8 % (0.0-8.0); NEUTROPHILS ABSOLUTE AUTO 3.6 K/mm3 (1.8-7.7); NEUTROPHILS PERCENT AUTO 49.5 % (41.0-71.0); PLATELET COUNT,PLT 71 K/mm3 (150-400); RED BLOOD CELL COUNT 3.62 M/mm3 (4.52-5.90); WHITE BLOOD CELL COUNT,WBC 7.26 K/mm3 (3.9-11.3)
[2023-02-25] MEDS ORDERED: Phenylephrine 1% 10 MG/ML SDV ONE (05:41)
[2023-02-25 05:42] LABS: HEMOGLOBIN 11.8 gm/dl (14.0-18.0)
[2023-02-25] MEDS ORDERED: Sodium Chloride 0.9% 100 ML ONE (05:42)
[2023-02-25] MEDS ORDERED: Phenylephrine 10 MG in Sodium Chloride 0.9% 99 ML IV SCH (05:45)
[2023-02-25 05:54] LABS: A/G RATIO 0.9 (1-2); ALBUMIN 2.6 g/dl (3.4-5.0); ANION GAP 13.7 (5-15); BILIRUBIN TOTAL 0.7 mg/dL (0.2-1.0); CALCIUM 8.4 mg/dL (8.5-10.1); EST CRCL DRUG DOSING (CG) 95.7 mL/min; POTASSIUM,K 3.7 mEq/L (3.5-5.1); PROTEIN TOTAL,TP 5.4 g/dl (6.4-8.2)
[2023-02-25] MEDS: Folic Acid 1 MG Tab PO SCH (09:11)
[2023-02-25] MEDS: Thiamine 200 MG/2 ML MDV IVPUSH SCH (09:11)
[2023-02-25 15:33] VITALS: BP 141/98; PULSE 110
== END 2023-02-25 14:45 | disposition left against medical advice (07) | DRG 894 ==
LOC: JD.ED 02:36 → JD.ICU 12:22
PROVIDERS: ADMIT Hospitalist; ATTEND Hospitalist
PROC: 3E033XZ Introduction of Vasopressor into Peripheral Vein, Percutaneous Approach (ICD-10-PCS; principal; 2023-02-25)
DX: F10.231 Alcohol dependence with withdrawal delirium (principal); F10.232 Alcohol dependence with withdrawal with perceptual disturbance; F41.9 Anxiety disorder, unspecified; I10 Essential (primary) hypertension; F17.210 Nicotine dependence, cigarettes, uncomplicated; F12.90 Cannabis use, unspecified, uncomplicated; I95.2 Hypotension due to drugs; T42.3X5A Adverse effect of barbiturates, initial encounter; T42.6X5A Adverse effect of other antiepileptic and sedative-hypnotic drugs, initial encounter; Z79.899 Other long term (current) drug therapy
CPT/HCPCS: 36415; 80053; 80307; 82009; 82977; 83605; 83735; 85025; 93005; 93010; 99285; A9270-GY; J1200; J1630; J1644; J2060; J2371; J2560; J3411; J3475; J3490; J7042; J7120

== ENCOUNTER 2023-08-04 13:38 | Emergency (ER) | payer SELFPAY ==
[2023-08-04 13:48] VITALS: BP 167/110; PULSE 114
[2023-08-04 14:08] LABS: BASOPHILS ABSOLUTE AUTO 0.1 K/mm3 (0.0-0.2); BASOPHILS PERCENT AUTO 0.5 % (0.0-1.0); EOSINOPHILS PERCENT AUTO 0.1 % (0.0-6.0); HEMATOCRIT 53.9 % (42.0-52.0); IMMATURE GRAN ABSOLUTE AUTO 0.03 K/mm3 (0.00-0.05); IMMATURE GRAN PERCENT AUTO 0.3 % (0.0-0.4); LYMPHOCYTES ABSOLUTE AUTO 2.2 K/mm3 (1.0-4.8); MEAN CORPUSCULAR HEMOGLOBIN 30.9 pg (28.0-32.0); MEAN CORPUSCULAR HGB CONC 35.4 g/dl (32.0-36.0); MEAN PLATELET VOLUME 8.8 fl (9.4-12.4); MONOCYTES ABSOLUTE AUTO 0.7 K/mm3 (0.0-0.8); MONOCYTES PERCENT AUTO 7.3 % (0.0-8.0); NEUTROPHILS ABSOLUTE AUTO 7.1 K/mm3 (1.8-7.7); NEUTROPHILS PERCENT AUTO 69.8 % (41.0-71.0); RED BLOOD CELL COUNT 6.18 M/mm3 (4.52-5.90)
[2023-08-04 14:10] LABS: HEMOGLOBIN 19.1 gm/dl (14.0-18.0); MEAN CORPUSCULAR VOLUME 87.2 fl (83.0-99.0)
[2023-08-04 14:11] LABS: PLATELET COUNT,PLT 278 K/mm3 (150-400)
[2023-08-04] MEDS: Folic Acid 1 MG Tab PO ONE (14:21)
[2023-08-04] MEDS: Sodium Chloride 0.9% 10 ML Syringe FLUSH PRN (14:21)
[2023-08-04] MEDS: Thiamine 100 MG Tab PO ONE (14:21)
[2023-08-04] MEDS: Sodium Chloride 0.9% 1,000 ML IV SCH ×2 (14:21→15:26)
[2023-08-04 14:36] LABS: ALBUMIN 3.6 g/dl (3.4-5.0); ANION GAP 16.5 (5-15); BILIRUBIN TOTAL 0.8 mg/dL (0.2-1.0); BUN/CREATININE RATIO 13.3 (14-18); CALCIUM 7.5 mg/dL (8.5-10.1); CREATININE 0.9 mg/dL (0.7-1.3); EST CRCL DRUG DOSING (CG) 112.94 mL/min; ETHANOL BLOOD MEDICAL 0.51 gm% (0.00); POTASSIUM,K 3.5 mEq/L (3.5-5.1); PROTEIN TOTAL,TP 7.2 g/dl (6.4-8.2); TSH 2.605 uIU/mL (0.358-3.74)
[2023-08-04] MEDS: Ondansetron 4 MG/2 ML SDV IVPUSH ONE (16:36)
== END 2023-08-04 17:58 | disposition left against medical advice (07) ==
LOC: JD.ED 13:38
DX: F10.120 Alcohol abuse with intoxication, uncomplicated (principal); Y90.0 Blood alcohol level of less than 20 mg/100 ml; Z53.29 Procedure and treatment not carried out because of patient's decision for other reasons; Z79.899 Other long term (current) drug therapy
CPT/HCPCS: 36415; 80053; 80143; 80179; 80307; 83690; 84443; 85025; 93005; 96361; 96374; 99284; A9270; J2405; J3490; J7030

== ENCOUNTER 2023-08-06 06:13 | Emergency (ER) | payer SELFPAY ==
[2023-08-06] MEDS: Sodium Chloride 0.9% 1,000 ML IV ONE (06:45)
[2023-08-06] MEDS: Pantoprazole 40 MG Vial IVPUSH ONE (06:45)
[2023-08-06 07:00] LABS: BASOPHILS ABSOLUTE AUTO 0.1 K/mm3 (0.0-0.2); BASOPHILS PERCENT AUTO 0.3 % (0.0-1.0); EOSINOPHILS PERCENT AUTO 0.1 % (0.0-6.0); HEMATOCRIT 50.5 % (42.0-52.0); HEMOGLOBIN 18.1 gm/dl (14.0-18.0); IMMATURE GRAN ABSOLUTE AUTO 0.06 K/mm3 (0.00-0.05); IMMATURE GRAN PERCENT AUTO 0.4 % (0.0-0.4); LYMPHOCYTES PERCENT AUTO 13.6 % (24.0-44.0); MEAN CORPUSCULAR HEMOGLOBIN 31.1 pg (28.0-32.0); MEAN CORPUSCULAR HGB CONC 35.8 g/dl (32.0-36.0); MEAN CORPUSCULAR VOLUME 86.8 fl (83.0-99.0); MEAN PLATELET VOLUME 8.8 fl (9.4-12.4); MONOCYTES ABSOLUTE AUTO 1.5 K/mm3 (0.0-0.8); MONOCYTES PERCENT AUTO 10.2 % (0.0-8.0); NEUTROPHILS ABSOLUTE AUTO 11.2 K/mm3 (1.8-7.7); NEUTROPHILS PERCENT AUTO 75.4 % (41.0-71.0); RED BLOOD CELL COUNT 5.82 M/mm3 (4.52-5.90); WHITE BLOOD CELL COUNT,WBC 14.83 K/mm3 (3.9-11.3)
[2023-08-06 07:01] VITALS: BP 156/104; PULSE 113
[2023-08-06 07:06] LABS: INR 1.02; PROTHROMBIN TIME 10.9 SECONDS (9.7-12.0)
[2023-08-06 07:08] LABS: PTT,PARTIAL THROMBOPLSTIN TIME 30.9 SECONDS (21.7-31.4)
[2023-08-06 07:09] LABS: A/G RATIO 0.9 (1-2); ALANINE AMINOTRANSFERASE,ALT 214 U/L (16-63); ALBUMIN 3.4 g/dl (3.4-5.0); ALKALINE PHOSPHATASE 90 U/L (46-116); ANION GAP 16.5 (5-15); ASPARTATE AMNIOTRANSFERASE,AST 182 U/L (15-37); BILIRUBIN TOTAL 0.8 mg/dL (0.2-1.0); BLOOD UREA NITROGEN,BUN 10 mg/dL (7-18); BUN/CREATININE RATIO 12.5 (14-18); CALCIUM 7.6 mg/dL (8.5-10.1); CARBON DIOXIDE,CO2 27 mEq/L (21-32); CHLORIDE,CL 101 mEq/L (98-107); CREATININE 0.8 mg/dL (0.7-1.3); ESTIMATED GFR 120 mL/min (>60); ETHANOL BLOOD MEDICAL 0.52 gm% (0.00); GLUCOSE RANDOM 117 mg/dL (70-99); LIPASE 181 U/L (16-77); PROTEIN TOTAL,TP 7.1 g/dl (6.4-8.2); SODIUM,NA 141 mEq/L (136-145)
[2023-08-06 07:13] LABS: PLATELET COUNT,PLT 155 K/mm3 (150-400)
[2023-08-06 07:18] LABS: POTASSIUM,K 3.5 mEq/L (3.5-5.1)
[2023-08-06 07:20] LABS: SLIDE REVIEW ABNORMAL SMEAR
== END 2023-08-06 07:50 | disposition left against medical advice (07) ==
LOC: JD.ED 06:13
DX: F10.220 Alcohol dependence with intoxication, uncomplicated (principal); Z79.899 Other long term (current) drug therapy; Y90.9 Presence of alcohol in blood, level not specified
CPT/HCPCS: 36415; 80053; 80307; 83690; 83735; 85025; 85610; 85730; 96361; 96374; 99284; C9113; J7030

== ENCOUNTER 2023-08-06 08:14 | Inpatient (IN) | payer SELFPAY ==
[2023-08-06] MEDS: Sodium Chloride 0.9% 10 ML Syringe FLUSH PRN (11:37)
[2023-08-06 12:09] LABS: APPEARANCE,URINE CLEAR (Clear); BILIRUBIN,URINE NEGATIVE (Negative); COLOR,URINE YELLOW (Yellow); GLUCOSE,URINE NEGATIVE (Negative); KETONES,URINE NEGATIVE (Negative); LEUKOCYTE ESTERASE,URINE NEGATIVE (Negative); NITRITE,URINE NEGATIVE (Negative); OCCULT BLOOD,URINE TRACE-LYSED (Negative); PROTEIN,URINE 1+ (Negative)
[2023-08-06 12:16] LABS: BACTERIA,URINE FEW /hpf (FEW); EPITHELIAL CELLS,URINE 0-5 /hpf (0-5); MUCUS,URINE FEW /hpf (FEW); RBC,URINE 0-5 /hpf (0-5); WBC,URINE 0-5 /hpf (0-5)
[2023-08-06 12:18] LABS: BARBITURATE SCREEN,URINE NEGATIVE (CUTOFF=200); BENZODIAZEPINES SCREEN,URINE NEGATIVE (CUTOFF=150); BUPRENORPHINE SCREEN,URINE NEGATIVE (CUTOFF=10); METHADONE SCREEN, URINE NEGATIVE (CUT0FF=200); METHAMPHETAMINES SCREEN, URINE NEGATIVE (CUTOFF=500); OXYCODONE SCREEN,URINE NEGATIVE (CUT0FF=100); THC SCREEN,URINE 20 NG/ML PRESUMPTIVE POSITIVE (CUTOFF=50)
[2023-08-06 12:19] LABS: AMPHETAMINES SCREEN, URINE NEGATIVE (CUTOFF=500)
[2023-08-06] MEDS: Prochlorperazine 10 MG/2 ML SDV IVPUSH ONE (12:32)
[2023-08-06] MEDS: Ondansetron 4 MG/2 ML SDV IVPUSH ONE (14:15)
[2023-08-06] MEDS: LORazepam 2 MG/ML SDV IVPUSH ONE (14:15)
[2023-08-06] MEDS ORDERED: PHENobarbital Sodium 65 MG/ML SDV IVPUSH ONE (15:25)
[2023-08-06 15:45] LABS: BASOPHILS PERCENT AUTO 0.3 % (0.0-1.0); EOSINOPHILS PERCENT AUTO 0.1 % (0.0-6.0); HEMATOCRIT 43.4 % (42.0-52.0); IMMATURE GRAN ABSOLUTE AUTO 0.02 K/mm3 (0.00-0.05); IMMATURE GRAN PERCENT AUTO 0.2 % (0.0-0.4); LYMPHOCYTES ABSOLUTE AUTO 1.1 K/mm3 (1.0-4.8); LYMPHOCYTES PERCENT AUTO 11.8 % (24.0-44.0); MEAN CORPUSCULAR HEMOGLOBIN 30.8 pg (28.0-32.0); MEAN CORPUSCULAR VOLUME 87.9 fl (83.0-99.0); MEAN PLATELET VOLUME 9.4 fl (9.4-12.4); MONOCYTES ABSOLUTE AUTO 0.8 K/mm3 (0.0-0.8); MONOCYTES PERCENT AUTO 8.3 % (0.0-8.0); NEUTROPHILS ABSOLUTE AUTO 7.5 K/mm3 (1.8-7.7); NEUTROPHILS PERCENT AUTO 79.3 % (41.0-71.0); PLATELET COUNT,PLT 123 K/mm3 (150-400); RED BLOOD CELL COUNT 4.94 M/mm3 (4.52-5.90); WHITE BLOOD CELL COUNT,WBC 9.48 K/mm3 (3.9-11.3)
[2023-08-06 16:00] LABS: HEMOGLOBIN 15.2 gm/dl (14.0-18.0)
[2023-08-06 16:05] LABS: INR 1.08; PROTHROMBIN TIME 11.5 SECONDS (9.7-12.0)
[2023-08-06 16:09] LABS: ALBUMIN 3.1 g/dl (3.4-5.0); ANION GAP 16.3 (5-15); BILIRUBIN TOTAL 0.9 mg/dL (0.2-1.0); C-REACTIVE PROTEIN 2.21 mg/dL (<0.30); CALCIUM 7.5 mg/dL (8.5-10.1); CREATININE 0.8 mg/dL (0.7-1.3); EST CRCL DRUG DOSING (CG) 122.79 mL/min; POTASSIUM,K 3.3 mEq/L (3.5-5.1); PROTEIN TOTAL,TP 6.3 g/dl (6.4-8.2)
[2023-08-06] MEDS: PHENobarbital Sodium 65 MG/ML SDV IVPUSH ONE (16:39)
[2023-08-06] MEDS ORDERED: Folic Acid 50 MG/10 ML MDV IV SCH (17:00)
[2023-08-06] MEDS ORDERED: Thiamine 100 MG in Sodium Chloride 0.9% 100 ML IV SCH (17:00)
[2023-08-06] MEDS: D5 1/2 NS w/ 20 mEq/L KCl 1,000 ML IV SCH (17:47)
[2023-08-06] MEDS: cefTRIAXone 1 GM in Sodium Chloride 0.9% 100 ML IV SCH (17:47)
[2023-08-06] MEDS: Thiamine 200 MG/2 ML MDV IVPUSH SCH (18:38)
[2023-08-06] MEDS: Folic Acid 50 MG/10 ML MDV IV SCH (18:39)
[2023-08-06] MEDS: PHENobarbital Sodium 65 MG/ML SDV IVPUSH SCH (22:24)
[2023-08-06] MEDS ORDERED: PHENobarbitaL sodium 130 MG in Sodium Chloride 0.9% 100 ML IV SCH (22:30)
[2023-08-07] MEDS: LORazepam 2 MG/ML SDV IVPUSH PRN (00:12)
[2023-08-07] MEDS: Pantoprazole 40 MG Vial IVPUSH SCH (08:25)
[2023-08-07] MEDS: PHENobarbital Sodium 65 MG/ML SDV ONE (23:58)
[2023-08-08] MEDS: PHENobarbital Sodium 65 MG/ML SDV IVPUSH ONE (00:06)
[2023-08-08] MEDS: PHENobarbital Sodium 65 MG/ML SDV IVPUSH SCH (06:01)
[2023-08-08 06:28] LABS: A/G RATIO 0.7 (1-2); ALBUMIN 2.9 g/dl (3.4-5.0); ANION GAP 15.5 (5-15); BILIRUBIN TOTAL 1.3 mg/dL (0.2-1.0); BUN/CREATININE RATIO 8.6 (14-18); CALCIUM 8.8 mg/dL (8.5-10.1); CREATININE 0.7 mg/dL (0.7-1.3); EST CRCL DRUG DOSING (CG) 145.21 mL/min; MAGNESIUM 1.9 mg/dL (1.8-2.4); POTASSIUM,K 3.5 mEq/L (3.5-5.1); PROTEIN TOTAL,TP 6.8 g/dl (6.4-8.2)
[2023-08-08 06:32] LABS: HEMATOCRIT 45.1 % (42.0-52.0); HEMOGLOBIN 15.8 gm/dl (14.0-18.0); MEAN CORPUSCULAR HEMOGLOBIN 30.7 pg (28.0-32.0); MEAN CORPUSCULAR VOLUME 87.6 fl (83.0-99.0); MEAN PLATELET VOLUME 9.8 fl (9.4-12.4); PLATELET COUNT,PLT 87 K/mm3 (150-400); RED BLOOD CELL COUNT 5.15 M/mm3 (4.52-5.90)
[2023-08-08] MEDS: Potassium Chloride 20 MEQ Tab.ER PO SCH (10:31)
[2023-08-08] MEDS: Ondansetron 4 MG/2 ML SDV IVPUSH PRN (13:20)
[2023-08-08] MEDS: PHENobarbital Sodium 65 MG/ML SDV IVPUSH STA (22:30)
[2023-08-09] MEDS: PHENobarbital Sodium 65 MG/ML SDV IVPUSH SCH (05:52)
[2023-08-09] MEDS: Thiamine 200 MG/2 ML MDV IVPUSH SCH (12:59)
[2023-08-09] MEDS: LORazepam 2 MG/ML SDV IVPUSH PRN (21:19)
[2023-08-10 00:01] VITALS: BP 129/101; PULSE 116
== END 2023-08-10 01:45 | disposition left against medical advice (07) | DRG 894 ==
LOC: JD.ED 08:14 → JD.ICU 14:33
PROVIDERS: ADMIT Pediatrics; ATTEND Internal Medicine
DX: F10.231 Alcohol dependence with withdrawal delirium (principal); F10.232 Alcohol dependence with withdrawal with perceptual disturbance; H54.7 Unspecified visual loss; K52.9 Noninfective gastroenteritis and colitis, unspecified; F19.10 Other psychoactive substance abuse, uncomplicated; R74.01 Elevation of levels of liver transaminase levels; Z79.899 Other long term (current) drug therapy
CPT/HCPCS: 36415; 70450; 70450-26; 70490; 70490-26; 80053; 80184; 80306; 80307; 81001; 82150; 83735; 85025; 85027; 85610; 85730; 86140; 96374; 96375; 99284; 99284-25; A9270-GY; C9113; J0696; J0780; J2060; J2405; J2560; J3411; J3480; J3490

== ENCOUNTER 2023-10-02 15:53 | Emergency (ER) | payer SELFPAY ==
[2023-10-02 16:22] LABS: BASOPHILS ABSOLUTE AUTO 0.1 K/mm3 (0.0-0.2); BASOPHILS PERCENT AUTO 0.4 % (0.0-1.0); HEMATOCRIT 54.5 % (42.0-52.0); HEMOGLOBIN 19.3 gm/dl (14.0-18.0); IMMATURE GRAN ABSOLUTE AUTO 0.04 K/mm3 (0.00-0.05); IMMATURE GRAN PERCENT AUTO 0.3 % (0.0-0.4); LYMPHOCYTES ABSOLUTE AUTO 2.5 K/mm3 (1.0-4.8); LYMPHOCYTES PERCENT AUTO 20.9 % (24.0-44.0); MEAN CORPUSCULAR HEMOGLOBIN 29.8 pg (28.0-32.0); MEAN CORPUSCULAR HGB CONC 35.4 g/dl (32.0-36.0); MEAN CORPUSCULAR VOLUME 84.2 fl (83.0-99.0); MEAN PLATELET VOLUME 8.9 fl (9.4-12.4); MONOCYTES PERCENT AUTO 8.4 % (0.0-8.0); NEUTROPHILS ABSOLUTE AUTO 8.4 K/mm3 (1.8-7.7); PLATELET COUNT,PLT 220 K/mm3 (150-400); RED BLOOD CELL COUNT 6.47 M/mm3 (4.52-5.90); WHITE BLOOD CELL COUNT,WBC 11.94 K/mm3 (3.9-11.3)
[2023-10-02] MEDS: Ondansetron 4 MG/2 ML SDV IVPUSH ONE (16:23)
[2023-10-02] MEDS: Lactated Ringers 1,000 ML IV ONE (16:23)
[2023-10-02] MEDS: OLANZapine 10 MG Vial IM ONE (16:27)
[2023-10-02] MEDS: LORazepam 2 MG/ML SDV IVPUSH ONE (16:30)
[2023-10-02 16:34] LABS: A/G RATIO 0.8 (1-2); ALBUMIN 3.4 g/dl (3.4-5.0); ANION GAP 17.5 (5-15); BILIRUBIN TOTAL 0.6 mg/dL (0.2-1.0); BUN/CREATININE RATIO 11.1 (14-18); CALCIUM 8.3 mg/dL (8.5-10.1); CREATININE 0.9 mg/dL (0.7-1.3); EST CRCL DRUG DOSING (CG) 120.54 mL/min; ETHANOL BLOOD MEDICAL 0.5 gm% (0.00); POTASSIUM,K 3.5 mEq/L (3.5-5.1); PROTEIN TOTAL,TP 7.6 g/dl (6.4-8.2)
[2023-10-02] MEDS: LORazepam 2 MG/ML SDV ONE (16:47)
[2023-10-02 17:48] LABS: AMPHETAMINES SCREEN, URINE NEGATIVE (CUTOFF=500); BARBITURATE SCREEN,URINE NEGATIVE (CUTOFF=200); BENZODIAZEPINES SCREEN,URINE NEGATIVE (CUTOFF=150); BUPRENORPHINE SCREEN,URINE NEGATIVE (CUTOFF=10); METHADONE SCREEN, URINE NEGATIVE (CUT0FF=200); METHAMPHETAMINES SCREEN, URINE NEGATIVE (CUTOFF=500); OXYCODONE SCREEN,URINE NEGATIVE (CUT0FF=100); THC SCREEN,URINE 20 NG/ML NEGATIVE (CUTOFF=50)
[2023-10-02] MEDS: Lactated Ringers 1,000 ML IV SCH (17:48)
[2023-10-03] MEDS: diphenhydrAMINE 50 MG/ML SDV IVPUSH ONE (05:09)
[2023-10-03 05:29] VITALS: PULSE 120
[2023-10-03] MEDS: LORazepam 2 MG/ML SDV IVPUSH ONE (09:07)
[2023-10-03 14:18] VITALS: BP 161/107
== END 2023-10-03 14:12 | disposition home or self-care (01) ==
LOC: JD.ED 15:53
DX: F10.239 Alcohol dependence with withdrawal, unspecified (principal); F41.9 Anxiety disorder, unspecified; Z79.899 Other long term (current) drug therapy; Y90.0 Blood alcohol level of less than 20 mg/100 ml
CPT/HCPCS: 36415; 80053; 80306; 80307; 85025; 93005; 96361; 96372; 96374; 96375; 96376; 99284; C1758; J1200; J2060; J2405; J7120; 93010

== ENCOUNTER 2023-11-02 19:24 | Inpatient (IN) | payer SELFPAY ==
[2023-11-02] MEDS: Thiamine 100 MG in Sodium Chloride 0.9% 100 ML IV ONE (20:19)
[2023-11-02] MEDS: LORazepam 2 MG/ML SDV IVPUSH ONE (20:19)
[2023-11-02] MEDS: Metoclopramide 10 MG/2 ML SDV IVPUSH ONE (20:19)
[2023-11-02] MEDS: Dextrose 5%-Lactated Ringers 1,000 ML IV SCH (20:20)
[2023-11-02 20:35] LABS: BASOPHILS PERCENT AUTO 0.5 % (0.0-1.0); EOSINOPHILS PERCENT AUTO 0.3 % (0.0-6.0); HEMATOCRIT 55.6 % (42.0-52.0); HEMOGLOBIN 19.2 gm/dl (14.0-18.0); IMMATURE GRAN ABSOLUTE AUTO 0.02 K/mm3 (0.00-0.05); IMMATURE GRAN PERCENT AUTO 0.3 % (0.0-0.4); LYMPHOCYTES PERCENT AUTO 33.3 % (24.0-44.0); MEAN CORPUSCULAR HEMOGLOBIN 29.7 pg (28.0-32.0); MEAN CORPUSCULAR HGB CONC 34.5 g/dl (32.0-36.0); MEAN CORPUSCULAR VOLUME 85.9 fl (83.0-99.0); MONOCYTES ABSOLUTE AUTO 0.9 K/mm3 (0.0-0.8); MONOCYTES PERCENT AUTO 15.2 % (0.0-8.0); NEUTROPHILS PERCENT AUTO 50.4 % (41.0-71.0); PLATELET COUNT,PLT 101 K/mm3 (150-400); RED BLOOD CELL COUNT 6.47 M/mm3 (4.52-5.90); WHITE BLOOD CELL COUNT,WBC 5.97 K/mm3 (3.9-11.3)
[2023-11-02 20:53] LABS: A/G RATIO 0.8 (1-2); ALANINE AMINOTRANSFERASE,ALT 98 U/L (16-63); ALBUMIN 3.2 g/dl (3.4-5.0); ALKALINE PHOSPHATASE 67 U/L (46-116); ANION GAP 13.6 (5-15); ASPARTATE AMNIOTRANSFERASE,AST 122 U/L (15-37); BILIRUBIN TOTAL 0.4 mg/dL (0.2-1.0); BLOOD UREA NITROGEN,BUN 13 mg/dL (7-18); BUN/CREATININE RATIO 16.3 (14-18); C-REACTIVE PROTEIN < 0.05 mg/dL (<0.30); CALCIUM 7.9 mg/dL (8.5-10.1); CARBON DIOXIDE,CO2 31 mEq/L (21-32); CHLORIDE,CL 96 mEq/L (98-107); CREATININE 0.8 mg/dL (0.7-1.3); ESTIMATED GFR 120 mL/min (>60); ETHANOL BLOOD MEDICAL 0.57 gm% (0.00); GLUCOSE RANDOM 126 mg/dL (70-99); LIPASE 166 U/L (16-77); MAGNESIUM 2.2 mg/dL (1.8-2.4); POTASSIUM,K 3.6 mEq/L (3.5-5.1); PROTEIN TOTAL,TP 7.1 g/dl (6.4-8.2); SODIUM,NA 137 mEq/L (136-145)
[2023-11-02 20:54] LABS: INR 1.08; PROTHROMBIN TIME 11.4 SECONDS (9.7-12.0)
[2023-11-02 21:14] LABS: LACTIC ACID 2.5 mmol/L (0.4-2.0)
[2023-11-03 00:30] LABS: APPEARANCE,URINE CLEAR (Clear); BILIRUBIN,URINE NEGATIVE (Negative); COLOR,URINE YELLOW (Yellow); GLUCOSE,URINE TRACE (Negative); KETONES,URINE NEGATIVE (Negative); LEUKOCYTE ESTERASE,URINE NEGATIVE (Negative); NITRITE,URINE NEGATIVE (Negative); OCCULT BLOOD,URINE 2+ (Negative); PH,URINE 6.5 (5.0-8.0); PROTEIN,URINE 3+ (Negative)
[2023-11-03 00:37] LABS: BACTERIA,URINE RARE /hpf (FEW); EPITHELIAL CELLS,URINE 0-5 /hpf (0-5); RBC,URINE 0-5 /hpf (0-5); WBC,URINE 0-5 /hpf (0-5)
[2023-11-03 00:38] LABS: MUCUS,URINE FEW /hpf (FEW)
[2023-11-03] MEDS: LORazepam 2 MG/ML SDV IVPUSH ONE ×3 (01:06→02:51)
[2023-11-03] MEDS: Lactated Ringers 1,000 ML IV SCH (01:09)
[2023-11-03] MEDS: Haloperidol Lactate 5 MG/ML SDV IM ONE (02:41)
[2023-11-03] MEDS: Haloperidol Lactate 5 MG/ML SDV IVPUSH ONE (02:41)
[2023-11-03] MEDS: Dextrose 5%-0.9% NaCl 1,000 ML IV SCH (05:11)
[2023-11-03] MEDS ORDERED: LORazepam 1 MG Tab PO PRN (10:19)
[2023-11-03] MEDS ORDERED: LORazepam 2 MG/ML SDV IVPUSH SCH (10:30)
[2023-11-03] MEDS ORDERED: LORazepam 2 MG/ML SDV IVPUSH PRN (11:00)
[2023-11-03] MEDS: LORazepam 2 MG/ML SDV IVPUSH PRN (12:00)
[2023-11-03] MEDS: chlordiazePOXIDE 25 MG Cap PO SCH ×2 (12:11→12:58)
[2023-11-03] MEDS: Nicotine 14 MG/24 Hr Patch TRDERM SCH (13:49)
[2023-11-03] MEDS ORDERED: Acetaminophen 325 MG Tab PO PRN (14:24)
[2023-11-03] MEDS ORDERED: Ketorolac 30 MG/ML SDV IM PRN (14:24)
[2023-11-03] MEDS ORDERED: Sennosides/Docusate Sodium 50-8.6 MG Tab PO PRN (14:24)
[2023-11-03] MEDS: Calcium Gluconate 10% 1 GM/10 ML SDV IVPUSH ONE (16:21)
[2023-11-03] MEDS: Cyanocobalamin (Vitamin B12) 1,000 MCG/ML SDV IM ONE (16:23)
[2023-11-03] MEDS: Potassium Chloride 20 MEQ Tab.ER PO ONE (16:25)
[2023-11-03] MEDS: Enoxaparin 40 MG/0.4 ML Syringe SUBCUT SCH (16:27)
[2023-11-03] MEDS: Thiamine 100 MG Tab PO SCH (20:01)
[2023-11-03] MEDS: Ondansetron 4 MG/2 ML SDV IVPUSH PRN (23:00)
[2023-11-04 05:44] LABS: HEMATOCRIT 44.6 % (42.0-52.0); MEAN CORPUSCULAR HEMOGLOBIN 29.9 pg (28.0-32.0); MEAN CORPUSCULAR HGB CONC 34.1 g/dl (32.0-36.0); MEAN CORPUSCULAR VOLUME 87.6 fl (83.0-99.0); MEAN PLATELET VOLUME 10.4 fl (9.4-12.4); PLATELET COUNT,PLT 56 K/mm3 (150-400); RED BLOOD CELL COUNT 5.09 M/mm3 (4.52-5.90); WHITE BLOOD CELL COUNT,WBC 8.22 K/mm3 (3.9-11.3)
[2023-11-04 05:45] LABS: HEMOGLOBIN 15.2 gm/dl (14.0-18.0)
[2023-11-04 05:46] LABS: A/G RATIO 0.8 (1-2); ALBUMIN 2.8 g/dl (3.4-5.0); ANION GAP 11.5 (5-15); BILIRUBIN TOTAL 1.4 mg/dL (0.2-1.0); BUN/CREATININE RATIO 16.7 (14-18); CALCIUM 8.7 mg/dL (8.5-10.1); CREATININE 0.6 mg/dL (0.7-1.3); EST CRCL DRUG DOSING (CG) 169.42 mL/min; MAGNESIUM 1.6 mg/dL (1.8-2.4); PHOSPHORUS 2.8 mg/dL (2.6-4.7); POTASSIUM,K 3.5 mEq/L (3.5-5.1); PROTEIN TOTAL,TP 6.2 g/dl (6.4-8.2)
[2023-11-04] MEDS: Folic Acid 1 MG Tab PO SCH (09:28)
[2023-11-04] MEDS: Multivitamin Tab PO SCH (09:28)
[2023-11-04] MEDS: Magnesium Sulfate/Water 4 GM in Premix Bag 1 BAG IV ONE (10:58)
[2023-11-04] MEDS: LORazepam 1 MG Tab PO PRN (13:08)
[2023-11-04] MEDS ORDERED: Potassium Phosphates 30 MMOLE in Sodium Chloride 0.9% 500 ML IV SCH (20:30)
[2023-11-04] MEDS: Phosphorus #1 250 MG Tab PO ONE (21:07)
[2023-11-04] MEDS: Potassium Chloride 20 MEQ Tab.ER PO ONE (21:07)
[2023-11-04] MEDS: LORazepam 2 MG/ML SDV IVPUSH PRN (23:54)
[2023-11-05 05:25] LABS: HEMATOCRIT 48.8 % (42.0-52.0); HEMOGLOBIN 16.4 gm/dl (14.0-18.0); MEAN CORPUSCULAR HEMOGLOBIN 29.9 pg (28.0-32.0); MEAN CORPUSCULAR HGB CONC 33.6 g/dl (32.0-36.0); MEAN CORPUSCULAR VOLUME 89.1 fl (83.0-99.0); MEAN PLATELET VOLUME 9.8 fl (9.4-12.4); PLATELET COUNT,PLT 52 K/mm3 (150-400); RED BLOOD CELL COUNT 5.48 M/mm3 (4.52-5.90)
[2023-11-05 05:46] LABS: A/G RATIO 0.7 (1-2); ALBUMIN 2.7 g/dl (3.4-5.0); BILIRUBIN TOTAL 0.9 mg/dL (0.2-1.0); BUN/CREATININE RATIO 15.7 (14-18); CALCIUM 9.1 mg/dL (8.5-10.1); CREATININE 0.7 mg/dL (0.7-1.3); EST CRCL DRUG DOSING (CG) 145.21 mL/min; MAGNESIUM 2.2 mg/dL (1.8-2.4); PHOSPHORUS 3.7 mg/dL (2.6-4.7); PROTEIN TOTAL,TP 6.7 g/dl (6.4-8.2)
[2023-11-05 05:57] LABS: ANION GAP 14.1 (5-15)
[2023-11-05 05:58] LABS: POTASSIUM,K 4.1 mEq/L (3.5-5.1)
[2023-11-05] MEDS ORDERED: chlordiazePOXIDE 25 MG Cap PO SCH (10:00)
[2023-11-05] MEDS: chlordiazePOXIDE 25 MG Cap PO SCH (16:05)
[2023-11-05] MEDS: Lactated Ringers 1,000 ML IV SCH (20:23)
[2023-11-06 05:36] LABS: HEMATOCRIT 51.5 % (42.0-52.0); HEMOGLOBIN 17.1 gm/dl (14.0-18.0); MEAN CORPUSCULAR HEMOGLOBIN 29.8 pg (28.0-32.0); MEAN CORPUSCULAR HGB CONC 33.2 g/dl (32.0-36.0); MEAN CORPUSCULAR VOLUME 89.7 fl (83.0-99.0); MEAN PLATELET VOLUME 9.9 fl (9.4-12.4); PLATELET COUNT,PLT 72 K/mm3 (150-400); RED BLOOD CELL COUNT 5.74 M/mm3 (4.52-5.90); WHITE BLOOD CELL COUNT,WBC 7.68 K/mm3 (3.9-11.3)
[2023-11-06 05:48] LABS: A/G RATIO 0.6 (1-2); ALBUMIN 2.7 g/dl (3.4-5.0); ANION GAP 15.1 (5-15); BILIRUBIN TOTAL 0.9 mg/dL (0.2-1.0); CREATININE 0.7 mg/dL (0.7-1.3); EST CRCL DRUG DOSING (CG) 145.21 mL/min; PROTEIN TOTAL,TP 6.9 g/dl (6.4-8.2)
[2023-11-06 06:03] LABS: POTASSIUM,K 4.1 mEq/L (3.5-5.1)
[2023-11-06] MEDS: LORazepam 2 MG/ML SDV IVPUSH PRN (17:59)
[2023-11-06] MEDS: Melatonin 3 MG Tab PO PRN (22:00)
[2023-11-07 01:25] VITALS: PULSE 110
[2023-11-07 04:09] VITALS: BP 131/72
== END 2023-11-07 05:42 | disposition left against medical advice (07) | DRG 894 ==
LOC: JD.ED 19:24 → JD.MS 11-03 09:40 → JD.ICU 11-03 10:15
PROVIDERS: ADMIT Student in an Organized Health Care Education/Training Program; ATTEND Student in an Organized Health Care Education/Training Program
DX: F10.231 Alcohol dependence with withdrawal delirium (principal); J96.01 Acute respiratory failure with hypoxia; F10.221 Alcohol dependence with intoxication delirium; K52.9 Noninfective gastroenteritis and colitis, unspecified; F17.210 Nicotine dependence, cigarettes, uncomplicated; S30.1XXA Contusion of abdominal wall, initial encounter; F41.9 Anxiety disorder, unspecified; R74.01 Elevation of levels of liver transaminase levels; H54.7 Unspecified visual loss; R73.9 Hyperglycemia, unspecified; D75.1 Secondary polycythemia; N06.9 Isolated proteinuria with unspecified morphologic lesion; F10.232 Alcohol dependence with withdrawal with perceptual disturbance; D69.59 Other secondary thrombocytopenia; K70.10 Alcoholic hepatitis without ascites
CPT/HCPCS: 36415; 71045; 71045-26; 80053; 80307; 81001; 82010; 83036; 83605; 83690; 83735; 83880; 84100; 85025; 85027; 85610; 85730; 86140; 93005; 93010; 96361; 96365; 96375; 96376; 99285; 99285-25; A9270-GY; J0612; J1630; J1650; J2060; J2405; J2765; J3411; J3420; J3475; J3490; J7042; J7120; J7121

== ENCOUNTER 2023-12-13 19:09 | Emergency (ER) | payer SELFPAY ==
[2023-12-13 19:19] VITALS: BP 134/74; PULSE 106
[2023-12-13] MEDS ORDERED: Sodium Chloride 0.9% 10 ML Syringe FLUSH PRN (19:47)
[2023-12-13 19:49] LABS: BASOPHILS ABSOLUTE AUTO 0.1 K/mm3 (0.0-0.2); EOSINOPHILS ABSOLUTE AUTO 0.1 K/mm3 (0.0-0.4); EOSINOPHILS PERCENT AUTO 1.2 % (0.0-6.0); HEMATOCRIT 48.3 % (42.0-52.0); HEMOGLOBIN 16.1 gm/dl (14.0-18.0); IMMATURE GRAN ABSOLUTE AUTO 0.04 K/mm3 (0.00-0.05); IMMATURE GRAN PERCENT AUTO 0.4 % (0.0-0.4); LYMPHOCYTES ABSOLUTE AUTO 3.4 K/mm3 (1.0-4.8); LYMPHOCYTES PERCENT AUTO 37.4 % (24.0-44.0); MEAN CORPUSCULAR HEMOGLOBIN 29.3 pg (28.0-32.0); MEAN CORPUSCULAR HGB CONC 33.3 g/dl (32.0-36.0); MEAN PLATELET VOLUME 8.7 fl (9.4-12.4); MONOCYTES ABSOLUTE AUTO 0.7 K/mm3 (0.0-0.8); MONOCYTES PERCENT AUTO 7.6 % (0.0-8.0); NEUTROPHILS ABSOLUTE AUTO 4.8 K/mm3 (1.8-7.7); NEUTROPHILS PERCENT AUTO 52.4 % (41.0-71.0); RED BLOOD CELL COUNT 5.49 M/mm3 (4.52-5.90); WHITE BLOOD CELL COUNT,WBC 9.08 K/mm3 (3.9-11.3)
[2023-12-13 20:05] LABS: PLATELET COUNT,PLT 339 K/mm3 (150-400)
[2023-12-13] MEDS: Sodium Chloride 0.9% 1,000 ML IV ONE (20:09)
[2023-12-13 20:27] LABS: A/G RATIO 0.9 (1-2); ALBUMIN 3.2 g/dl (3.4-5.0); ANION GAP 16.2 (5-15); BILIRUBIN TOTAL 0.1 mg/dL (0.2-1.0); BUN/CREATININE RATIO 3.3 (14-18); CALCIUM 7.7 mg/dL (8.5-10.1); CREATININE 0.9 mg/dL (0.7-1.3); EST CRCL DRUG DOSING (CG) 101.55 mL/min; POTASSIUM,K 3.2 mEq/L (3.5-5.1); PROTEIN TOTAL,TP 6.9 g/dl (6.4-8.2)
[2023-12-13 20:48] LABS: ETHANOL BLOOD MEDICAL 0.43 gm% (0.00); TSH 7.17 uIU/mL (0.358-3.74)
[2023-12-13 21:04] LABS: T4 FREE 0.49 ng/dL (0.76-1.46)
[2023-12-13 21:19] LABS: CORONAVIRUS COVID-19 NAA NEGATIVE (NEGATIVE); INFLUENZA A NAA NEGATIVE (NEGATIVE); RESPIRATORY SYNCYTIAL VIR NAA NEGATIVE (NEGATIVE)
== END 2023-12-14 01:11 | disposition left against medical advice (07) ==
LOC: JD.ED 19:09
DX: F10.120 Alcohol abuse with intoxication, uncomplicated (principal); Z79.899 Other long term (current) drug therapy; Z53.29 Procedure and treatment not carried out because of patient's decision for other reasons; Y90.9 Presence of alcohol in blood, level not specified
CPT/HCPCS: 0241U; 36415; 71045; 80053; 80143; 80179; 80307; 83735; 84439; 84443; 85025; 93005; 94762; 96360; 99285; J7030; 93010; 99283

== ENCOUNTER 2023-12-18 19:20 | Emergency (ER) | payer SELFPAY ==
[2023-12-18] MEDS: Ondansetron 4 MG/2 ML SDV IVPUSH ONE (20:00)
[2023-12-18] MEDS: Sodium Chloride 0.9% 10 ML Syringe FLUSH PRN (20:00)
[2023-12-18] MEDS: Sodium Chloride 0.9% 1,000 ML IV SCH (20:08)
[2023-12-18 20:10] LABS: BASOPHILS PERCENT AUTO 0.5 % (0.0-1.0); EOSINOPHILS PERCENT AUTO 0.1 % (0.0-6.0); HEMATOCRIT 52.3 % (42.0-52.0); HEMOGLOBIN 17.9 gm/dl (14.0-18.0); IMMATURE GRAN ABSOLUTE AUTO 0.02 K/mm3 (0.00-0.05); IMMATURE GRAN PERCENT AUTO 0.3 % (0.0-0.4); LYMPHOCYTES ABSOLUTE AUTO 1.9 K/mm3 (1.0-4.8); LYMPHOCYTES PERCENT AUTO 23.8 % (24.0-44.0); MEAN CORPUSCULAR HEMOGLOBIN 29.3 pg (28.0-32.0); MEAN CORPUSCULAR HGB CONC 34.2 g/dl (32.0-36.0); MEAN CORPUSCULAR VOLUME 85.7 fl (83.0-99.0); MEAN PLATELET VOLUME 8.1 fl (9.4-12.4); MONOCYTES ABSOLUTE AUTO 0.7 K/mm3 (0.0-0.8); MONOCYTES PERCENT AUTO 8.5 % (0.0-8.0); NEUTROPHILS ABSOLUTE AUTO 5.3 K/mm3 (1.8-7.7); NEUTROPHILS PERCENT AUTO 66.8 % (41.0-71.0); PLATELET COUNT,PLT 263 K/mm3 (150-400); WHITE BLOOD CELL COUNT,WBC 7.97 K/mm3 (3.9-11.3)
[2023-12-18 20:42] LABS: A/G RATIO 0.9 (1-2); ALANINE AMINOTRANSFERASE,ALT 77 U/L (16-63); ALBUMIN 3.4 g/dl (3.4-5.0); ALKALINE PHOSPHATASE 75 U/L (46-116); ANION GAP 12.3 (5-15); ASPARTATE AMNIOTRANSFERASE,AST 61 U/L (15-37); BILIRUBIN TOTAL 0.3 mg/dL (0.2-1.0); BLOOD UREA NITROGEN,BUN 5 mg/dL (7-18); CALCIUM 7.9 mg/dL (8.5-10.1); CARBON DIOXIDE,CO2 30 mEq/L (21-32); CHLORIDE,CL 103 mEq/L (98-107); ESTIMATED GFR 102 mL/min (>60); ETHANOL BLOOD MEDICAL 0.48 gm% (0.00); GLUCOSE RANDOM 117 mg/dL (70-99); LIPASE 56 U/L (16-77); MAGNESIUM 2.1 mg/dL (1.8-2.4); POTASSIUM,K 3.3 mEq/L (3.5-5.1); PROTEIN TOTAL,TP 7.3 g/dl (6.4-8.2); SODIUM,NA 142 mEq/L (136-145)
[2023-12-18] MEDS: LORazepam 2 MG/ML SDV IVPUSH ONE ×2 (21:33→23:53)
[2023-12-18] MEDS: LORazepam 0.5 MG Tab PO ONE (23:20)
[2023-12-18] MEDS: LORazepam 0.5 MG Tab ONE (23:24)
[2023-12-19 01:51] VITALS: BP 138/91; PULSE 92
== END 2023-12-18 23:35 | disposition home or self-care (01) ==
LOC: JD.ED 19:20
DX: F10.220 Alcohol dependence with intoxication, uncomplicated (principal)
CPT/HCPCS: 36415; 80053; 80307; 83690; 83735; 85025; 96361; 96374; 96375; 99284; A9270; J2060; J2405; J3490; J7030

== ENCOUNTER 2023-12-25 00:02 | Emergency (ER) | payer SELFPAY ==
[2023-12-25 01:27] LABS: BASOPHILS PERCENT AUTO 0.4 % (0.0-1.0); EOSINOPHILS PERCENT AUTO 0.4 % (0.0-6.0); HEMATOCRIT 49.1 % (42.0-52.0); HEMOGLOBIN 17.1 gm/dl (14.0-18.0); IMMATURE GRAN ABSOLUTE AUTO 0.03 K/mm3 (0.00-0.05); IMMATURE GRAN PERCENT AUTO 0.4 % (0.0-0.4); LYMPHOCYTES ABSOLUTE AUTO 1.2 K/mm3 (1.0-4.8); MEAN CORPUSCULAR HEMOGLOBIN 30.2 pg (28.0-32.0); MEAN CORPUSCULAR HGB CONC 34.8 g/dl (32.0-36.0); MEAN CORPUSCULAR VOLUME 86.6 fl (83.0-99.0); MEAN PLATELET VOLUME 8.7 fl (9.4-12.4); MONOCYTES PERCENT AUTO 11.5 % (0.0-8.0); NEUTROPHILS ABSOLUTE AUTO 6.2 K/mm3 (1.8-7.7); NEUTROPHILS PERCENT AUTO 73.3 % (41.0-71.0); RED BLOOD CELL COUNT 5.67 M/mm3 (4.52-5.90)
[2023-12-25 01:30] LABS: PLATELET COUNT,PLT 109 K/mm3 (150-400)
[2023-12-25 01:53] LABS: ACETAMINOPHEN 0 ug/mL (10-30); ALANINE AMINOTRANSFERASE,ALT 99 U/L (16-63); ALBUMIN 3.5 g/dl (3.4-5.0); ALKALINE PHOSPHATASE 72 U/L (46-116); ANION GAP 12.7 (5-15); ASPARTATE AMNIOTRANSFERASE,AST 129 U/L (15-37); BILIRUBIN TOTAL 0.8 mg/dL (0.2-1.0); BLOOD UREA NITROGEN,BUN 8 mg/dL (7-18); C-REACTIVE PROTEIN <0.05 mg/dL (<0.30); CARBON DIOXIDE,CO2 27 mEq/L (21-32); CHLORIDE,CL 101 mEq/L (98-107); CREATININE 0.8 mg/dL (0.7-1.3); EST CRCL DRUG DOSING (CG) 118.52 mL/min; ESTIMATED GFR 120 mL/min (>60); ETHANOL BLOOD MEDICAL 0.32 gm% (0.00); GLUCOSE RANDOM 123 mg/dL (70-99); MAGNESIUM 1.7 mg/dL (1.8-2.4); POTASSIUM,K 3.7 mEq/L (3.5-5.1); PROTEIN TOTAL,TP 7.1 g/dl (6.4-8.2); SODIUM,NA 137 mEq/L (136-145); TSH 2.924 uIU/mL (0.358-3.74)
[2023-12-25] MEDS: Ondansetron 4 MG Tab.DIS PO ONE ×2 (02:42→08:10)
[2023-12-25] MEDS: Sodium Chloride 0.9% 1,000 ML IV ONE (02:53)
[2023-12-25] MEDS: Sodium Chloride 0.9% 10 ML Syringe FLUSH PRN (02:53)
[2023-12-25 04:04] LABS: APPEARANCE,URINE CLEAR (Clear); BILIRUBIN,URINE 1+ (Negative); COLOR,URINE DARK YELLOW (Yellow); GLUCOSE,URINE NEGATIVE (Negative); KETONES,URINE TRACE (Negative); LEUKOCYTE ESTERASE,URINE NEGATIVE (Negative); NITRITE,URINE NEGATIVE (Negative); OCCULT BLOOD,URINE 1+ (Negative); PH,URINE 6.5 (5.0-8.0); PROTEIN,URINE 3+ (Negative)
[2023-12-25 04:11] LABS: BACTERIA,URINE RARE /hpf (FEW); EPITHELIAL CELLS,URINE 0-5 /hpf (0-5); MUCUS,URINE MODERATE /hpf (FEW); WBC,URINE 0-5 /hpf (0-5)
[2023-12-25 04:12] LABS: BARBITURATE SCREEN,URINE NEGATIVE (CUTOFF=200); BENZODIAZEPINES SCREEN,URINE NEGATIVE (CUTOFF=150); BUPRENORPHINE SCREEN,URINE NEGATIVE (CUTOFF=10); METHADONE SCREEN, URINE NEGATIVE (CUT0FF=200); METHAMPHETAMINES SCREEN, URINE NEGATIVE (CUTOFF=500); OXYCODONE SCREEN,URINE NEGATIVE (CUT0FF=100); THC SCREEN,URINE 20 NG/ML NEGATIVE (CUTOFF=50)
[2023-12-25 04:17] LABS: AMPHETAMINES SCREEN, URINE NEGATIVE (CUTOFF=500)
[2023-12-25 09:30] VITALS: BP 165/105; PULSE 82
== END 2023-12-25 08:48 | disposition home or self-care (01) ==
LOC: JD.ED 00:02
DX: F10.920 Alcohol use, unspecified with intoxication, uncomplicated (principal); R11.0 Nausea
CPT/HCPCS: 36415; 80053; 80143; 80179; 80306; 80307; 81001; 83735; 84443; 85025; 86140; 93005; 96360; 99284; A9270; J3490; J7030; 93010; 99283

== ENCOUNTER 2024-01-29 18:40 | Emergency (ER) | payer SELFPAY ==
[2024-01-29 19:07] LABS: BASOPHILS PERCENT AUTO 0.5 % (0.0-1.0); EOSINOPHILS PERCENT AUTO 0.2 % (0.0-6.0); HEMATOCRIT 51.9 % (42.0-52.0); HEMOGLOBIN 17.8 gm/dl (14.0-18.0); IMMATURE GRAN ABSOLUTE AUTO 0.02 K/mm3 (0.00-0.05); IMMATURE GRAN PERCENT AUTO 0.3 % (0.0-0.4); LYMPHOCYTES ABSOLUTE AUTO 1.5 K/mm3 (1.0-4.8); LYMPHOCYTES PERCENT AUTO 24.8 % (24.0-44.0); MEAN CORPUSCULAR HEMOGLOBIN 30.4 pg (28.0-32.0); MEAN CORPUSCULAR HGB CONC 34.3 g/dl (32.0-36.0); MEAN CORPUSCULAR VOLUME 88.6 fl (83.0-99.0); MEAN PLATELET VOLUME 8.8 fl (9.4-12.4); MONOCYTES ABSOLUTE AUTO 0.6 K/mm3 (0.0-0.8); MONOCYTES PERCENT AUTO 10.3 % (0.0-8.0); NEUTROPHILS ABSOLUTE AUTO 3.9 K/mm3 (1.8-7.7); NEUTROPHILS PERCENT AUTO 63.9 % (41.0-71.0); PLATELET COUNT,PLT 67 K/mm3 (150-400); RED BLOOD CELL COUNT 5.86 M/mm3 (4.52-5.90); WHITE BLOOD CELL COUNT,WBC 6.09 K/mm3 (3.9-11.3)
[2024-01-29] MEDS: Ondansetron 4 MG/2 ML SDV IVPUSH ONE (19:27)
[2024-01-29] MEDS: Sodium Chloride 0.9% 1,000 ML IV SCH (19:27)
[2024-01-29] MEDS: Sodium Chloride 0.9% 10 ML Syringe FLUSH PRN (19:28)
[2024-01-29 19:34] LABS: A/G RATIO 0.8 (1-2); ALBUMIN 3.1 g/dl (3.4-5.0); ANION GAP 12.5 (5-15); BILIRUBIN TOTAL 0.4 mg/dL (0.2-1.0); BUN/CREATININE RATIO 18.6 (14-18); CALCIUM 8.5 mg/dL (8.5-10.1); CREATININE 0.7 mg/dL (0.7-1.3); EST CRCL DRUG DOSING (CG) 164.75 mL/min; ETHANOL BLOOD MEDICAL 0.56 gm% (0.00); POTASSIUM,K 3.5 mEq/L (3.5-5.1); PROTEIN TOTAL,TP 6.9 g/dl (6.4-8.2)
[2024-01-30 01:38] VITALS: BP 135/90; PULSE 91
== END 2024-01-29 20:30 | disposition left against medical advice (07) ==
LOC: JD.ED 18:40
DX: F10.229 Alcohol dependence with intoxication, unspecified (principal); Z79.899 Other long term (current) drug therapy; Z86.16 Personal history of COVID-19
CPT/HCPCS: 36415; 70450; 70486; 80053; 80307; 83735; 85025; 96361; 96374; 99285; J2405; J3490; J7030; 99284

== ENCOUNTER 2024-06-20 13:45 | Emergency (ER) | payer SELFPAY ==
[2024-06-20 14:26] VITALS: BP 142/97; PULSE 124
[2024-06-20] MEDS: Sodium Chloride 0.9% 1,000 ML IV SCH ×2 (14:54→17:35)
[2024-06-20] MEDS: Ondansetron 4 MG/2 ML SDV IVPUSH ONE ×2 (14:54→18:19)
[2024-06-20 15:10] LABS: BASOPHILS PERCENT AUTO 0.6 % (0.0-1.0); HEMATOCRIT 43.1 % (42.0-52.0); HEMOGLOBIN 15.1 gm/dl (14.0-18.0); IMMATURE GRAN ABSOLUTE AUTO 0.03 K/mm3 (0.00-0.05); IMMATURE GRAN PERCENT AUTO 0.6 % (0.0-0.4); LYMPHOCYTES ABSOLUTE AUTO 0.5 K/mm3 (1.0-4.8); LYMPHOCYTES PERCENT AUTO 9.6 % (24.0-44.0); MEAN CORPUSCULAR HEMOGLOBIN 32.2 pg (28.0-32.0); MEAN CORPUSCULAR VOLUME 91.9 fl (83.0-99.0); MEAN PLATELET VOLUME 9.5 fl (9.4-12.4); MONOCYTES ABSOLUTE AUTO 0.5 K/mm3 (0.0-0.8); MONOCYTES PERCENT AUTO 9.2 % (0.0-8.0); NEUTROPHILS ABSOLUTE AUTO 4.2 K/mm3 (1.8-7.7); PLATELET COUNT,PLT 122 K/mm3 (150-400); RED BLOOD CELL COUNT 4.69 M/mm3 (4.52-5.90)
[2024-06-20 15:35] LABS: A/G RATIO 0.6 (1-2); ALBUMIN 2.4 g/dl (3.4-5.0); ANION GAP 19.5 (5-15); BILIRUBIN TOTAL 1.7 mg/dL (0.2-1.0); CALCIUM 8.2 mg/dL (8.5-10.1); CREATININE 0.7 mg/dL (0.7-1.3); EST CRCL DRUG DOSING (CG) 162.18 mL/min; ETHANOL BLOOD MEDICAL 0.32 gm% (0.00); MAGNESIUM 1.5 mg/dL (1.8-2.4); PROTEIN TOTAL,TP 6.3 g/dl (6.4-8.2)
[2024-06-20 15:40] LABS: LACTIC ACID 8.8 mmol/L (0.4-2.0)
[2024-06-20 15:41] LABS: POTASSIUM,K 3.5 mEq/L (3.5-5.1)
[2024-06-20] MEDS: Magnesium Sulf/Wat 2 GM/50 mL 2 GM in Premix Bag 1 BAG IV ONE (17:37)
[2024-06-20] MEDS: Magnesium Sulf/Wat 2 GM/50 mL 50 ML ONE (18:07)
[2024-06-20] MEDS: LORazepam 2 MG/ML SDV IVPUSH ONE (18:18)
[2024-06-20] MEDS ORDERED: Sodium Chloride 0.9% 1,000 ML IV SCH (18:45)
[2024-06-20] MEDS ORDERED: LORazepam 1 MG Tab PO ONE (21:20)
== END 2024-06-20 22:00 | disposition home or self-care (01) ==
LOC: JD.ED 13:45
DX: F10.120 Alcohol abuse with intoxication, uncomplicated (principal); F10.139 Alcohol abuse with withdrawal, unspecified; E83.42 Hypomagnesemia; Z79.899 Other long term (current) drug therapy; Z86.16 Personal history of COVID-19; Y90.9 Presence of alcohol in blood, level not specified
CPT/HCPCS: 36415; 80053; 80307; 82550; 83605; 83735; 84484; 85025; 93005; 93010; 96361; 96365; 96375; 96376; 99284; 99284-25; J2060; J2405; J3475; J7030